=== PATIENT | female | born 1955 ===

== ENCOUNTER 2018-11-20 12:11 | Inpatient (IN) | payer MEDICARE ==
[~2018-11-20] VITALS: Ht 170.2 cm; Wt 71.7 kg
--- NOTE | 2018-11-20 13:23 | Emergency Room Report ---
History of Present Illness General Chief Complaint: Chest Pain Source: Patient Present Illness HPI Patient resents with recent surgery to the right shoulder reports that she was at [facility] for several days Was recently transferred to nursing facility while they're patient was having increased pain and now developed right upper chest pain and presents to the ER denies any vomiting Patient reports that she had been constipated for 5 days however upon arrival to the ER did have a large bowel movement and feels improved with that denies any short of breath denies any pleurisy Allergies: Coded Allergies: LOSARTAN (Verified Allergy, Severe, chest pain, 11/20/18) HYDROCODONE (Verified Allergy, Intermediate, rash, 11/20/18) ATORVASTATIN (Verified Allergy, Unknown, 11/20/18) LISINOPRIL (Verified Allergy, Unknown, 11/20/18) PROCHLORPERAZINE (Verified Allergy, Unknown, 11/20/18) SIMVASTATIN (Verified Allergy, Unknown, 11/20/18) Patient History Past Medical History: see triage record Pertinent Family History: none Last Menstrual Period: n/a Reviewed Nursing Documentation: PMH: Agreed; PSxH: Agreed Nursing Documentation-PMH Hx Hypertension: Yes Hx Diabetes: Yes - type 2 Review of Systems All Other Systems: negative except mentioned in HPI Physical Exam Vital Signs Date Time Temp Pulse Resp B/P (MAP) Pulse Ox O2 Delivery O2 Flow Rate FiO2 11/20/18 12:04 98.6 95 18 135/81 92 Room Air Sp02 EP Interpretation: reviewed, normal General Appearance: no apparent distress Head: normocephalic, atraumatic Eyes: bilateral eye PERRL, bilateral eye EOMI ENT: normal pharynx, no angioedema Neck: supple Respiratory: lungs clear, no retraction, no accessory muscle use Cardiovascular #1: regular rate, rhythm Gastrointestinal: non tender, soft Musculoskeletal: other - Surgical dressing over the right shoulder, limited range of motion Neurologic: alert, oriented x3 Skin: no rash Lymphatic: no adenopathy Medical Decision Making Diagnostic Impression: Primary Impression: ACS (acute coronary syndrome) Additional Impression: Elevated transaminase level ER Course Patient is a fairly complex patient with multiple differential to consideration including but not limited to cardiac cardiopulmonary and vascular emergencies There appears to be some significant component of discomfort related to the patient's right shoulder as well EKG does not show any acute pathology Patient complains of diffuse pain involving the lower back intermittently as well patient is complex and will require further inpatient care and evaluation Labs Test 11/20/18 13:10 White Blood Count 11.4 K/UL (4.8-10.8) Red Blood Count 4.30 M/UL (4.20-5.40) Hemoglobin 12.9 G/DL (12.0-16.0) Hematocrit 39.6 % (37.0-47.0) Mean Corpuscular Volume 92 FL (80-99) Mean Corpuscular Hemoglobin 29.9 PG (27.0-31.0) Mean Corpuscular Hemoglobin Concent 32.5 G/DL (32.0-36.0) Red Cell Distribution Width 13.1 % (11.6-14.8) Platelet Count 354 K/UL (150-450) Mean Platelet Volume 5.5 FL (6.5-10.1) Neutrophils (%) (Auto) 80.0 % (45.0-75.0) Lymphocytes (%) (Auto) 13.9 % (20.0-45.0) Monocytes (%) (Auto) 4.1 % (1.0-10.0) Eosinophils (%) (Auto) 1.4 % (0.0-3.0) Basophils (%) (Auto) 0.5 % (0.0-2.0) Sodium Level 139 MMOL/L (136-145) Potassium Level 4.4 MMOL/L (3.5-5.1) Chloride Level 100 MMOL/L (98-107) Carbon Dioxide Level 30 MMOL/L (21-32) Anion Gap 9 mmol/L (5-15) Blood Urea Nitrogen 22 mg/dL (7-18) Creatinine 1.2 MG/DL (0.55-1.30) Estimat Glomerular Filtration Rate 45.5 mL/min (>60) Glucose Level 201 MG/DL (74-106) Calcium Level 10.1 MG/DL (8.5-10.1) Total Bilirubin 0.5 MG/DL (0.2-1.0) Aspartate Amino Transf (AST/SGOT) 396 U/L (15-37) Alanine Aminotransferase (ALT/SGPT) 316 U/L (12-78) Alkaline Phosphatase 237 U/L (46-116) Total Creatine Kinase 171 U/L (26-308) Creatine Kinase MB 1.8 NG/ML (0.0-3.6) Creatine Kinase MB Relative Index 1.0 Troponin I 0.000 ng/mL (0.000-0.056) Pro-B-Type Natriuretic Peptide 308 pg/mL (0-125) Total Protein 8.3 G/DL (6.4-8.2) Albumin 3.3 G/DL (3.4-5.0) Globulin 5.0 g/dL Albumin/Globulin Ratio 0.7 (1.0-2.7) Rhythm Strip Diag. Results EP Interpretation: yes Rate: 77 Rhythm: NSR, no PVC's, no ectopy Chest X-Ray Diagnostic Results Chest X-Ray Diagnostic Results : Chest X-Ray Ordered: Yes # of Views/Limited/Complete: 1 View Indication: Chest Pain EP Interpretation: Yes Interpretation: no consolidation, no effusion, no pneumothorax, other - Atelectasis right lobe Impression: Other - Atelectasis right lobe Electronically Signed by: Bridget Jaquez DO Last Vital Signs Date Time Temp Pulse Resp B/P (MAP) Pulse Ox O2 Delivery O2 Flow Rate FiO2 11/20/18 12:04 98.6 95 18 135/81 92 Room Air Status: improved Disposition: ADMITTED INPATIENT Condition: Serious Bridget Jaquez DO Nov 20, 2018 13:23
[2018-11-20 13:27] LABS: BASOPHILS % (AUTO) 0.5 % (0.0-2.0); EOSINOPHILS % (AUTO) 1.4 % (0.0-3.0); HEMATOCRIT 39.6 % (37.0-47.0); HEMOGLOBIN 12.9 G/DL (12.0-16.0); LYMPHOCYTES % (AUTO) 13.9 % (20.0-45.0); MEAN CORPUSCULAR VOLUME 92 FL (80-99); MONOCYTES % (AUTO) 4.1 % (1.0-10.0); PLATELET COUNT 354 K/UL (150-450); RED CELL DISTRIBUTION WIDTH 13.1 % (11.6-14.8); WHITE BLOOD COUNT 11.4 K/UL (4.8-10.8)
[2018-11-20] MEDS ORDERED: Morphine Sulfate 4mg/ml Inj (IV USE ONLY) IVP ONE ×2 (13:30→16:30)
[2018-11-20 13:40] LABS: ANION GAP 9 mmol/L (5-15); BLOOD UREA NITROGEN 22 mg/dL (7-18); CALCIUM 10.1 MG/DL (8.5-10.1); CARBON DIOXIDE 30 MMOL/L (21-32); CHLORIDE 100 MMOL/L (98-107); CREATININE 1.2 MG/DL (0.55-1.30); POTASSIUM 4.4 MMOL/L (3.5-5.1); SODIUM 139 MMOL/L (136-145)
[2018-11-20 13:55] LABS: ALANINE AMINOTRANSFERASE 316 U/L (12-78); ALBUMIN 3.3 G/DL (3.4-5.0); ALBUMIN/GLOBULIN RATIO 0.7 (1.0-2.7); ALKALINE PHOSPHATASE 237 U/L (46-116); ASPARTATE AMINO TRANSFERASE 396 U/L (15-37); BILIRUBIN,TOTAL 0.5 MG/DL (0.2-1.0); CKMB 1.8 NG/ML (0.0-3.6); CREATINE KINASE 171 U/L (26-308)
[2018-11-20 13:58] VITALS: BP 135/81
--- NOTE | 2018-11-20 14:29 | Diagnostic Imaging Report ---
EXAM: XR Chest, 1 View CLINICAL HISTORY: Chest pain TECHNIQUE: Frontal view of the chest. COMPARISON: No relevant prior studies available. FINDINGS: Lungs: Linear band in the right lung base, likely representing discoid atelectasis. The lungs otherwise appear clear. Pleural space: Unremarkable. The costophrenic angles are sharp. No visible pneumothorax. Heart: Unremarkable. No cardiomegaly. Mediastinum: Unremarkable. Bones/joints: Unremarkable. IMPRESSION: Linear band in the right lung base, likely representing discoid atelectasis.
[2018-11-20] MEDS ORDERED: TUBERSOL (PPD)0.1 ML IDERMAL (14:56)
[2018-11-20] MEDS ORDERED: METFORMIN HCL1000 M1 ORAL (14:56)
[2018-11-20] MEDS ORDERED: PANTOPRAZOLE SO40 MG ORAL (14:56)
[2018-11-20] MEDS ORDERED: LOSARTAN POTASS25 MG ORAL (14:56)
[2018-11-20] MEDS ORDERED: ROPINIROLE HCL2 MG PO ×2 (14:56→21:09)
[2018-11-20] MEDS ORDERED: PERCOCET 10-321 EACH ORAL (14:56)
[2018-11-20] MEDS ORDERED: VENLAFAXINE HCL75 MG ORAL ×2 (14:56→21:09)
[2018-11-20] MEDS ORDERED: OXYCODONE-ACET1 EAC3 ORAL (14:56)
[2018-11-20] MEDS ORDERED: Albuterol/Ipratropium 3ml neb HHN PRN (15:00)
[2018-11-20] MEDS ORDERED: Ketorolac 30mg Inj IV PRN (15:00)
[2018-11-20] MEDS ORDERED: dilTIAZem HCl 25mg/5ml Inj IV PRN (15:00)
[2018-11-20] MEDS ORDERED: Miralax 17gm pkt ORAL PRN (15:00)
[2018-11-20] MEDS ORDERED: Nitroglycerin Subl 0.4mg tab SL PRN (15:15)
[2018-11-20 15:25] VITALS: BP 131/93
[2018-11-20] MEDS ORDERED: ARTIFICIAL TEA1 EAC3 OP (17:47)
[2018-11-20] MEDS ORDERED: ASPIRIN81 MG ORAL (17:47)
[2018-11-20] MEDS ORDERED: LEVOTHYROXINE75 MCG ORAL (17:47)
[2018-11-20 20:00] VITALS: BP 124/72
[2018-11-20] MEDS: oxyCODONE HCL/Acetaminophen 5/325mg ORAL PRN (20:27)
[2018-11-20] MEDS: Heparin 5000 units/ml inj SUBQ SCH (21:00)
[2018-11-20] MEDS ORDERED: DIOVAN HCT 1601 EACH ORAL (21:09)
[2018-11-20] MEDS ORDERED: OMEPRAZOLE20 M2 ORAL (21:09)
[2018-11-20] MEDS ORDERED: ADVAIR 500-501 EACH INH (21:09)
[2018-11-20] MEDS ORDERED: TRULICITY1.5 MG/0.5 SQ (21:09)
[2018-11-20] MEDS ORDERED: ATENOLOL100 MG ORAL (21:09)
[2018-11-20] MEDS ORDERED: ACTOS15 MG ORAL (21:09)
[2018-11-20] MEDS ORDERED: PRAVASTATIN SOD20 M1 ORAL (21:09)
[2018-11-21] VITALS: BP 132/49
[2018-11-21] MEDS: Morphine Sulfate 2mg/ml Inj(IV/IM USE ONLY) IVP PRN ×4 (00:06→16:45)
[2018-11-21] MEDS: oxyCODONE HCL/Acetaminophen 5/325mg ORAL PRN ×2 (00:56→06:26)
[2018-11-21 04:00] VITALS: BP 145/76
[2018-11-21 07:19] LABS: BASOPHILS % (AUTO) 0.6 % (0.0-2.0); HEMATOCRIT 34.5 % (37.0-47.0); HEMOGLOBIN 11.3 G/DL (12.0-16.0); LYMPHOCYTES % (AUTO) 30.3 % (20.0-45.0); MEAN CORPUSCULAR VOLUME 92 FL (80-99); NEUTROPHILS % (AUTO) 60.1 % (45.0-75.0); PLATELET COUNT 330 K/UL (150-450); RED BLOOD COUNT 3.74 M/UL (4.20-5.40); RED CELL DISTRIBUTION WIDTH 13.2 % (11.6-14.8); WHITE BLOOD COUNT 5.9 K/UL (4.8-10.8)
[2018-11-21 07:41] LABS: CHOLESTEROL 188 MG/DL (< 200); HDL CHOLESTEROL 58 MG/DL (40-60); TRIGLYCERIDES 68 MG/DL (30-150)
[2018-11-21 08:00] VITALS: BP 147/70
[2018-11-21] MEDS ORDERED: Losartan 25mg tab ORAL SCH (09:00)
[2018-11-21] MEDS: Aspirin Baby 81mg ORAL SCH (09:45)
[2018-11-21] MEDS: Venlafaxine XR 75mg cap ORAL SCH (09:45)
[2018-11-21] MEDS: Heparin 5000 units/ml inj SUBQ SCH ×2 (09:46→21:00)
--- NOTE | 2018-11-21 11:19 | Cardiology Progress Note ---
Assessment/Plan Assessment/Plan 2 trop neg ekg neg echo prelim neg will need repeat ekg dtr did not answere her phone to see if pt has already had preop stress test or not if nto been prformed may need tohave done venous duplex need s gi evla for lft abn [id number] Objective Last 24 Hour Vital Signs Date Time Temp Pulse Resp B/P (MAP) Pulse Ox O2 Delivery O2 Flow Rate FiO2 11/21/18 09:00 Room Air 11/21/18 08:00 79 11/21/18 08:00 97.9 72 18 147/70 (95) 95 11/21/18 07:05 99 16 Room Air 21 11/21/18 04:00 80 11/21/18 04:00 98.1 72 18 145/76 (99) 98 11/21/18 00:00 100.2 88 20 132/49 (76) 98 11/21/18 00:00 88 11/20/18 21:00 Room Air 11/20/18 20:10 96 18 Room Air 21 11/20/18 20:00 93 11/20/18 20:00 99.0 89 20 124/72 (89) 100 11/20/18 18:02 Nasal Cannula 2.0 11/20/18 17:09 95 18 Room Air 21 11/20/18 16:53 98.6 11/20/18 16:51 98.6 98 18 131/93 95 Room Air 11/20/18 15:25 98.6 98 18 131/93 95 Room Air 11/20/18 14:01 98.6 11/20/18 13:58 90 18 Room Air 11/20/18 13:58 98.6 90 18 135/81 92 Room Air 11/20/18 12:04 98.6 95 18 135/81 92 Room Air Intake and Output 11/20/18 11/21/18 19:00 07:00 Intake Total 360 ml 360 ml Balance 360 ml 360 ml Intake Oral 360 ml 360 ml # Voids 2 2 # Bowel Movements 2 Laboratory Tests Test 11/20/18 13:10 11/21/18 05:45 White Blood Count 11.4 K/UL (4.8-10.8) H 5.9 K/UL (4.8-10.8) Red Blood Count 4.30 M/UL (4.20-5.40) 3.74 M/UL (4.20-5.40) L Hemoglobin 12.9 G/DL (12.0-16.0) 11.3 G/DL (12.0-16.0) L Hematocrit 39.6 % (37.0-47.0) 34.5 % (37.0-47.0) L Mean Corpuscular Volume 92 FL (80-99) 92 FL (80-99) Mean Corpuscular Hemoglobin 29.9 PG (27.0-31.0) 30.1 PG (27.0-31.0) Mean Corpuscular Hemoglobin Concent 32.5 G/DL (32.0-36.0) 32.6 G/DL (32.0-36.0) Red Cell Distribution Width 13.1 % (11.6-14.8) 13.2 % (11.6-14.8) Platelet Count 354 K/UL (150-450) 330 K/UL (150-450) Mean Platelet Volume 5.5 FL (6.5-10.1) L 5.1 FL (6.5-10.1) L Neutrophils (%) (Auto) 80.0 % (45.0-75.0) H 60.1 % (45.0-75.0) Lymphocytes (%) (Auto) 13.9 % (20.0-45.0) L 30.3 % (20.0-45.0) Monocytes (%) (Auto) 4.1 % (1.0-10.0) 6.0 % (1.0-10.0) Eosinophils (%) (Auto) 1.4 % (0.0-3.0) 3.0 % (0.0-3.0) Basophils (%) (Auto) 0.5 % (0.0-2.0) 0.6 % (0.0-2.0) Sodium Level 139 MMOL/L (136-145) Potassium Level 4.4 MMOL/L (3.5-5.1) Chloride Level 100 MMOL/L (98-107) Carbon Dioxide Level 30 MMOL/L (21-32) Anion Gap 9 mmol/L (5-15) Blood Urea Nitrogen 22 mg/dL (7-18) H Creatinine 1.2 MG/DL (0.55-1.30) Estimat Glomerular Filtration Rate 45.5 mL/min (>60) Glucose Level 201 MG/DL (74-106) H Calcium Level 10.1 MG/DL (8.5-10.1) Total Bilirubin 0.5 MG/DL (0.2-1.0) Aspartate Amino Transf (AST/SGOT) 396 U/L (15-37) H Alanine Aminotransferase (ALT/SGPT) 316 U/L (12-78) H Alkaline Phosphatase 237 U/L (46-116) H Total Creatine Kinase 171 U/L (26-308) Creatine Kinase MB 1.8 NG/ML (0.0-3.6) Creatine Kinase MB Relative Index 1.0 Troponin I 0.000 ng/mL (0.000-0.056) 0.000 ng/mL (0.000-0.056) Pro-B-Type Natriuretic Peptide 308 pg/mL (0-125) H Total Protein 8.3 G/DL (6.4-8.2) H Albumin 3.3 G/DL (3.4-5.0) L Globulin 5.0 g/dL Albumin/Globulin Ratio 0.7 (1.0-2.7) L Prothrombin Time 10.3 SEC (9.30-11.50) Prothromb Time International Ratio 1.0 (0.9-1.1) Activated Partial Thromboplast Time 27 SEC (23-33) C-Reactive Protein, Quantitative 6.8 mg/dL (0.00-0.90) H Triglycerides Level 68 MG/DL (30-150) Cholesterol Level 188 MG/DL (< 200) LDL Cholesterol 98 mg/dL (<100) HDL Cholesterol 58 MG/DL (40-60) Cholesterol/HDL Ratio 3.2 (3.3-4.4) L Thyroid Stimulating Hormone (TSH) 1.063 uiU/mL (0.358-3.740) Brad Canales MD Nov 21, 2018 11:19
[2018-11-21] MEDS ORDERED: Lexiscan 0.4mg/5ml syringe IV PRN (11:30)
[2018-11-21] MEDS ORDERED: DiphenhydrAMINE 25mg/10ml Elixir ORAL PRN (11:45)
[2018-11-21 12:00] VITALS: BP 127/88
--- NOTE | 2018-11-21 14:22 | Consultation ---
History of Present Illness General Date patient seen: Nov 21, 2018 Chief Complaint: Chest Pain Present Illness HPI 63 year old female with hx of HTN, hypothyroid, with recent surgery to the right shoulde brought to ER with CC of right upper chest pain. Patient reports that she had been constipated for 5 days however upon arrival to the ER did have a large bowel movement and feels improved with that denies any short of breath denies any pleurisy. Pt is admitted to telemetry for treatment of her ACS. Allergies: Coded Allergies: LOSARTAN (Verified Allergy, Severe, chest pain, 11/20/18) HYDROCODONE (Verified Allergy, Intermediate, rash, 11/20/18) ATORVASTATIN (Verified Allergy, Unknown, 11/20/18) LISINOPRIL (Verified Allergy, Unknown, 11/20/18) PROCHLORPERAZINE (Verified Allergy, Unknown, 11/20/18) SIMVASTATIN (Verified Allergy, Unknown, 11/20/18) Medication History Scheduled Aspirin* (Aspirin*), 81 MG ORAL DAILY, (Reported) Atenolol* (Tenormin*), 100 MG ORAL DAILY, (Reported) Dextran 70/Hypromellose/Pf (Artificial Tears Drops), 1 EACH OP DAILY, (Reported) Levothyroxine Sodium* (Levothyroxine Sodium*), 50 MCG ORAL DAILY, (Reported) Metformin Hcl* (Metformin Hcl*), 1,000 MG ORAL BID, (Reported) Omeprazole (Omeprazole), 20 MG ORAL DAILY, (Reported) Pioglitazone Hcl* (Actos*), 15 MG ORAL DAILY, (Reported) Pravastatin Sod* (Pravastatin Sod*), 40 MG ORAL BEDTIME, (Reported) Ropinirole Hcl* (Ropinirole Hcl*), 2 MG PO QHS, (Reported) Valsartan/Hydrochlorothiazide 160-12.5MG (Diovan Hct 160-12.5 Mg Tab), 1 TAB ORAL DAILY, (Reported) Venlafaxine Hcl* (Venlafaxine Hcl*), 225 MG ORAL DAILY, (Reported) Scheduled PRN Fluticasone/Salmeterol (Advair 500-50 Diskus), 1 PUFF INH EVERY 12 HOURS PRN for asthma, (Reported) Oxycodone Hcl/Acetaminophen 10-325 Mg Tablet (Percocet 10-325 Mg Tablet*), 1 TAB ORAL Q4H PRN for For Pain, (Reported) Oxycodone Hcl/Acetaminophen 5-325* (Oxycodone-Acetaminophen 5-325*), 2 TAB ORAL Q4H PRN for For Pain, (Reported) Miscellaneous Medications Dulaglutide (Trulicity), 1.5 MG SQ, (Reported) Discontinued Medications Losartan Potassium* (Losartan Potassium*), 12.5 MG ORAL DAILY, (Reported) Discontinued Reason: Pt stopped taking med Pantoprazole* (Pantoprazole*), 40 MG ORAL DAILY, (Reported) Discontinued Reason: Pt stopped taking med Ropinirole Hcl* (Ropinirole Hcl*), 2 MG PO TID, (Reported) Discontinued Reason: Medication dose changed Tuberculin Ppd (Tubersol), 0.1 ML IDERMAL, (Reported) Discontinued Reason: Therapy completed Venlafaxine Hcl* (Venlafaxine Hcl*), 75 MG ORAL DAILY, (Reported) Discontinued Reason: Medication dose changed Patient History Healthcare decision maker Resuscitation status Full Code Advanced Directive on File Past Medical/Surgical History Past Medical/Surgical History: (1) HTN (hypertension) (2) Diabetes mellitus (3) Hypothyroidism Review of Systems All Other Systems: negative except mentioned in HPI Physical Exam General Appearance: WD/WN, no apparent distress Lines, tubes and drains: peripheral HEENT: normocephalic, atraumatic Neck: non-tender, normal alignment Respiratory/Chest: chest wall non-tender, lungs clear Breasts: no masses Cardiovascular/Chest: normal peripheral pulses Abdomen: normal bowel sounds, soft Genitourinary/Rectal: normal genital exam, heme negative stool Extremities: non-tender, non-pitting Last 24 Hour Vital Signs Date Time Temp Pulse Resp B/P (MAP) Pulse Ox O2 Delivery O2 Flow Rate FiO2 11/21/18 12:00 98.5 79 18 127/88 (101) 93 11/21/18 12:00 77 11/21/18 09:00 Room Air 11/21/18 08:00 79 11/21/18 08:00 97.9 72 18 147/70 (95) 95 11/21/18 07:05 99 16 Room Air 21 11/21/18 04:00 80 11/21/18 04:00 98.1 72 18 145/76 (99) 98 11/21/18 00:00 100.2 88 20 132/49 (76) 98 11/21/18 00:00 88 11/20/18 21:00 Room Air 11/20/18 20:10 96 18 Room Air 21 11/20/18 20:00 93 11/20/18 20:00 99.0 89 20 124/72 (89) 100 11/20/18 18:02 Nasal Cannula 2.0 11/20/18 17:09 95 18 Room Air 21 11/20/18 16:53 98.6 11/20/18 16:51 98.6 98 18 131/93 95 Room Air 11/20/18 15:25 98.6 98 18 131/93 95 Room Air Intake and Output 11/20/18 11/21/18 19:00 07:00 Intake Total 360 ml 360 ml Balance 360 ml 360 ml Intake Oral 360 ml 360 ml # Voids 2 2 # Bowel Movements 2 Laboratory Tests Test 11/21/18 05:45 White Blood Count 5.9 K/UL (4.8-10.8) Red Blood Count 3.74 M/UL (4.20-5.40) L Hemoglobin 11.3 G/DL (12.0-16.0) L Hematocrit 34.5 % (37.0-47.0) L Mean Corpuscular Volume 92 FL (80-99) Mean Corpuscular Hemoglobin 30.1 PG (27.0-31.0) Mean Corpuscular Hemoglobin Concent 32.6 G/DL (32.0-36.0) Red Cell Distribution Width 13.2 % (11.6-14.8) Platelet Count 330 K/UL (150-450) Mean Platelet Volume 5.1 FL (6.5-10.1) L Neutrophils (%) (Auto) 60.1 % (45.0-75.0) Lymphocytes (%) (Auto) 30.3 % (20.0-45.0) Monocytes (%) (Auto) 6.0 % (1.0-10.0) Eosinophils (%) (Auto) 3.0 % (0.0-3.0) Basophils (%) (Auto) 0.6 % (0.0-2.0) Prothrombin Time 10.3 SEC (9.30-11.50) Prothromb Time International Ratio 1.0 (0.9-1.1) Activated Partial Thromboplast Time 27 SEC (23-33) Troponin I 0.000 ng/mL (0.000-0.056) C-Reactive Protein, Quantitative 6.8 mg/dL (0.00-0.90) H Triglycerides Level 68 MG/DL (30-150) Cholesterol Level 188 MG/DL (< 200) LDL Cholesterol 98 mg/dL (<100) HDL Cholesterol 58 MG/DL (40-60) Cholesterol/HDL Ratio 3.2 (3.3-4.4) L Thyroid Stimulating Hormone (TSH) 1.063 uiU/mL (0.358-3.740) Height (Feet): 5 Height (Inches): 7.00 Weight (Pounds): 160 Medications Current Medications Medications (Trade) Dose Ordered Sig/Christen Route PRN Reason Start Time Stop Time Status Last Admin Dose Admin Albuterol/ Ipratropium (Albuterol/ Ipratropium) 3 ml Q4H PRN HHN Shortness of Breath 11/20/18 15:00 11/25/18 14:59 Aspirin (ASA) 162 mg DAILY ORAL 11/21/18 09:00 12/21/18 08:59 11/21/18 09:45 Dextrose (Dextrose 50%) 25 ml Q30M PRN IV Hypoglycemia 11/21/18 13:45 12/21/18 13:44 Dextrose (Dextrose 50%) 50 ml Q30M PRN IV Hypoglycemia 11/21/18 13:45 12/21/18 13:44 Diltiazem HCl (Cardizem) 10 mg EVERY HOUR PRN IV heart rate more than 120BPM 11/20/18 15:00 12/20/18 14:59 Diphenhydramine HCl (Benadryl) 50 mg Q6H PRN ORAL Itching 11/21/18 14:00 12/21/18 13:59 Heparin Sodium (Porcine) (Heparin 5000 units/ml) 5,000 units EVERY 12 HOURS SUBQ 11/20/18 21:00 12/20/18 20:59 11/21/18 09:46 Insulin Aspart (NovoLOG) BEFORE MEALS AND HS SUBQ 11/21/18 16:30 12/21/18 16:29 Ketorolac Tromethamine (Toradol 30mg) 30 mg Q6H PRN IV moderate pain ( 4-6) 11/20/18 15:00 11/25/18 14:59 Levothyroxine Sodium (Synthroid) 50 mcg DAILY@0630 ORAL 11/21/18 06:30 12/21/18 06:29 11/21/18 06:26 Lidocaine (Lidoderm 5% PATCH) 1 patch Q24H TDERMAL 11/20/18 22:00 12/20/18 21:59 11/20/18 22:20 Morphine Sulfate (Morphine Sulfate) 2 mg Q4H PRN IVP For Pain 11/20/18 23:00 11/27/18 22:59 11/21/18 11:25 Nitroglycerin (Ntg) 0.4 mg Q5MIN X 3 DOSES PRN SL Prn Chest Pain 11/20/18 15:15 12/20/18 15:14 Ondansetron HCl (Zofran) 4 mg Q6H PRN IVP Nausea & Vomiting 11/20/18 15:00 12/20/18 14:59 Oxycodone/ Acetaminophen (Percocet 5-325) 2 tab Q4H PRN ORAL Severe Pain (Pain Scale 7-10) 11/20/18 19:00 11/27/18 18:59 11/21/18 06:26 Polyethylene Glycol (Miralax) 17 gm DAILYPRN PRN ORAL Constipation 11/20/18 15:00 12/20/18 14:59 Ropinirole HCl (Requip) 2 mg QHS ORAL 11/20/18 23:00 12/20/18 22:59 11/21/18 00:06 Temazepam (Restoril) 15 mg HSPRN PRN ORAL Insomnia 11/20/18 21:00 11/27/18 20:59 Venlafaxine HCl (Effexor-XR) 75 mg DAILY ORAL 11/21/18 09:00 12/21/18 08:59 11/21/18 09:45 Assessment/Plan Problem List: (1) ACS (acute coronary syndrome) ICD Codes: I24.9 - Acute ischemic heart disease, unspecified SNOMED: 133319387, 513221284 (2) Elevated transaminase level ICD Codes: R74.0 - Nonspecific elevation of levels of transaminase and lactic acid dehydrogenase [LDH] SNOMED: 297449247, 376651911 (3) Hypothyroidism ICD Codes: E03.9 - Hypothyroidism, unspecified SNOMED: 02206802 (4) Diabetes mellitus ICD Codes: E11.9 - Type 2 diabetes mellitus without complications SNOMED: 77264188 (5) HTN (hypertension) ICD Codes: I10 - Essential (primary) hypertension SNOMED: 36893347 Assessment/Plan: serial ekg, troponin cardiology evaluation sliding scale diabetic diet dvt prophylaxis. Sona Magallon MD Nov 21, 2018 14:22
--- NOTE | 2018-11-21 15:50 | History & Physical ---
History and Physical History & Physicial Dictated for Int Med-DR Spence no. [id number] Mike Walker MD Nov 21, 2018 15:50
[2018-11-21 16:00] VITALS: BP 129/81
[2018-11-21] MEDS: NovoLOG Insulin Flexpen SUBQ SCH ×2 (16:39→21:16)
[2018-11-21] MEDS: Docusate 100mg cap ORAL SCH (17:53)
--- NOTE | 2018-11-21 19:00 | Consultation ---
DATE OF CONSULTATION: 11/21/2018 CARDIOLOGY CONSULTATION: CONSULTING PHYSICIAN: Brad Canales M.D. REFERRING PHYSICIAN: Gt Spence M.D. REASON FOR REFERRAL: Chest pain. HISTORY OF PRESENT ILLNESS: This is a middle-aged female, who apparently has a history of shoulder issues both on the right and left. On the right, she had surgery at [facility] on last Thursday, afterwards had some coughing issues and some shortness of breath, was given some breathing treatments, pain subsided, after three days was transferred to convalescent facility where she was not getting any adequate level of care she says. Has problems with having a bowel movement. They would not give her pain medication. They would give her medications to have a bowel movement and she was not able to defecate effectively even despite pushing and one of these episodes was associated with increasing shortness of breath and pain in the chest initially on the right side then in the center and pain was severe. She was short of breath and nauseated, but did not vomit. Roommate called 911, brought to the emergency room here at [facility], and has been admitted. At the present time, the pain is insignificant better, but has not completely resolved. She may have had a stress test. Not clear. I have tried to contact her daughter. I have not been successful as of yet to get that information. She uses one pillow at night. She has palpitations. She has dizziness. She has shortness of breath all the time. PAST MEDICAL HISTORY: Positive diabetes, high blood pressure, high cholesterol. No heart attack. No cancer. No stroke. No hepatitis. No tuberculosis. Does have history of asthma. She does have chronic renal insufficiency apparently was told stage 3 by her doctor. No liver problems. She is hypothyroid. No anemia. No HIV/AIDS. No blood clots. Her chart does indicate that she has history of restless leg syndrome, gastroesophageal reflux disease as well as depression and systemic hypertension. SOCIAL HISTORY: Never smoked or drank. Lives at home. Does not really have anybody else to take care of her. One daughter is in [place]. One daughter is at the [facility] [employer] studying premed, but lives with a roommate. So, she was not able to care for herself and asked that she be transferred to convalescent facility after her surgery. MEDICATIONS: Her medications at home include Advair, aspirin, Synthroid, metformin, Percocet, pioglitazone, pravastatin, ropinirole, Trulicity, valsartan, and venlafaxine. REVIEW OF SYSTEMS: GASTROINTESTINAL: As mentioned, constipation. She has had a bowel movement since she has been here. No bloody or black stools. GENITOURINARY: Negative. PULMONARY: Occasional coughing. CONSTITUTIONAL: Negative. NEUROLOGIC: She has problems with her legs. PHYSICAL EXAMINATION: GENERAL: Shows to be obese middle-aged female, in no respiratory distress. NECK: Supple. No jugular venous distention. LUNGS: Appeared to be clear to auscultation on the left side where she was able to lift the left shoulder off the pillow, so I can examine her lungs. CARDIAC: Regular rate and rhythm. No heaves or thrills noted. ABDOMEN: Soft, obese. Positive bowel sounds. Nontender. EXTREMITIES: There is no edema. She has a cold pack that is applied to her right shoulder and right chest wall area. NEUROLOGIC: She is awake, alert, responsive. LABORATORY VALUES: Two sets of cardiac enzymes negative. Sodium 139, potassium 4.4, chloride 100, bicarbonate 30, BUN 22, creatinine 1.2, and glucose of 202. AST and ALT elevated at 396 and 360, alkaline phosphatase of 237. CK of 171, proBNP is only 300. Total protein of 8.3 with a gamma globulin of 4. LDL of 98, HDL 58. TSH of 1.06. INR is 1, PTT of 27. IMAGING: Including a chest x-ray the right lung base likely represent discoid atelectasis. Telemetry shows sinus. EKG shows normal sinus rhythm, no significant ST-T abnormalities. Only significant degree on 1 EKG. Echocardiogram has been performed shows ejection fraction of 70%, PA pressure of 50, mild diastolic relaxation abnormalities at least on the preliminary report. ASSESSMENT AND PLAN: 1. Chest pain. 2. Diabetes. 3. Hypertension. 4. Hyperlipidemia. 5. Obesity. 6. Recent shoulder surgery. 7. Restless leg syndrome. 8. Gastroesophageal reflux disease. 9. Hypothyroidism. 10. Abnormal liver function tests. This patient was seen in cardiac consultation. Electrocardiogram from last night is negative. EKG at least the first time present was negative. Two sets of cardiac enzymes are negative despite severe pain. Her EKG does not show any significant abnormalities. However, she does have multiple risk factors for coronary artery disease. Not clear to me she ever had a stress test. I will try to contact the daughter again to identify if any stress test had been performed. Nevertheless, EKG will be repeated. Venous duplex of the lower extremity will be performed to rule out deep venous thromboses and further recommendations depending on the results of the above. She should undergo abdominal ultrasound to evaluate for possibility of cholecystitis. If stress test has not been performed, she may require having one performed during this hospitalization. Brad Canales M.D. DR: ROCKY JOB#: [id number] CC:
[2018-11-21 20:00] VITALS: BP 128/76
[2018-11-21] MEDS: Morphine Sulfate 4mg/ml Inj (IV USE ONLY) IVP PRN (21:13)
--- NOTE | 2018-11-21 23:30 | History and Physical Report ---
DATE OF ADMISSION: 11/20/2018 CHIEF COMPLAINT: The patient is a 63-year-old [place] female who presents with chief complaint of rectal bleeding. HISTORY OF PRESENT ILLNESS: The patient was admitted to [facility] from 11/16/2018 to 11/19/2018. The patient is status post arthroscopic right shoulder rotator cuff repair on 11/16/2018 at [facility]. The patient was discharged on 11/19/2018 to [facility]. The patient states she has been constipated since admission to [facility]. The patient asked for an enema on 11/19/2018 due to impaction of stool. The patient became extremely warm to the touch. The patient had a near syncopal episode. The patient herself dialed 911. The patient was transferred to [facility] Emergency Room for evaluation. The patient was admitted for near syncope and rectal bleeding. REVIEW OF SYSTEMS: CONSTITUTIONAL: The patient denies weight loss or weight gain. The patient denies fevers or chills. HEENT: The patient denies ear or throat pain. The patient denies headache. CARDIOVASCULAR: The patient denies palpitations or chest pain. CHEST: The patient denies wheeze or shortness of breath. ABDOMEN: The patient complains of constipation as above. The patient denies nausea, vomiting, or diarrhea. GENITOURINARY: The patient denies dysuria or increased frequency of urination. NEUROMUSCULAR: The patient denies seizures. The patient with near syncopal episode as above. PAST MEDICAL HISTORY: Significant for: 1. Type 2 diabetes. 2. Hypertension. 3. Hypothyroidism. 4. Hypercholesterolemia. 5. Asthma. PAST SURGICAL HISTORY: Significant for: 1. Arthroscopic right shoulder rotator cuff repair on 11/16/2018 at [facility] as above. 2. Cholecystectomy. CURRENT MEDICATIONS: 1. Albuterol metered-dose inhaler two puffs p.o. q.i.d. p.r.n. 2. Aspirin 325 mg p.o. twice daily. 3. Levoxyl 0.05 mg p.o. daily. 4. Losartan 12.5 mg p.o. daily. 5. Metformin 1000 mg p.o. twice daily. 6. Okreek 5/325 mg one tablet p.o. q.4 h. p.r.n. 7. Okreek 10/325 mg one tablet p.o. q.4 h. p.r.n. 8. Protonix 40 mg p.o. daily. 9. Ropinirole 2 mg p.o. nightly for restless legs. 10. Venlafaxine 75 mg three tablets p.o. daily. ALLERGIES: 1. Compazine. 2. Vicodin. 3. Losartan. 4. Zocor. 5. Lipitor. SOCIAL HISTORY: The patient is . The patient is currently at [facility]. The patient denies tobacco or alcohol use. PHYSICAL EXAMINATION: VITAL SIGNS: Temperature 100.2, respirations 20, pulse 88, and blood pressure 132/49. GENERAL: The patient is a well-developed and well-nourished [place] female, in no apparent distress. HEENT: Eyes, pupils are equal and responsive to light and accommodation. Extraocular movements are intact. NECK: Supple without lymphadenopathy. CHEST: Lungs are clear to auscultation bilaterally without wheezes or rales. CARDIOVASCULAR: Regular rhythm and rate. S1-S2 are normal without murmurs, rubs, or gallops. ABDOMEN: Soft, nontender, and nondistended. Positive bowel sounds. No evidence of hepatosplenomegaly. Currently, no rebound or guarding noted. EXTREMITIES: Right shoulder has an ice pack. Otherwise, extremities without clubbing, cyanosis, or edema. RECTAL/GENITAL: Refused. NEUROLOGIC: Cranial nerves II through XII are grossly intact without focal deficits. Motor strength is 5/5 bilaterally. Deep tendon reflexes are 2+ plantar. LABORATORY STUDIES: WBC 11.4, hemoglobin 12.9, hematocrit 39.6, and platelets 354,000. Sodium 139, potassium 4.4, chloride 100, CO2 30, BUN 22, and creatinine 1.2. Glucose 201. AST elevated at 396, ALT elevated at 360, and alkaline phosphatase elevated at 237. Troponin 0.0. ASSESSMENT: This is a 63-year-old [place] female with: 1. Rectal bleeding. 2. Constipation. 3. Postop fever. 4. Elevated liver function tests. 5. Diabetes type 2. 6. Hypertension. 7. Gastroesophageal reflux disease. 8. Hypothyroidism. 9. Asthma. 10. Hypercholesterolemia. TREATMENT: 1. Rectale bleeding/constipation/elevated liver function tests. A Gastroenterology consultation has been obtained with Dr. Abimael Rick. The patient may require colonoscopy during this hospitalization for chronic constipation. We will follow recommendations of Gastroenterology. 2. Postop fever. 3. Right rotator cuff tear. The patient is status post arthroscopic right rotator cuff tear repair at [facility] on 11/16/2018. 4. Diabetes type 2. A NovoLog sliding scale has been instituted. Continue metformin as above. 5. Hypertension. Continue diltiazem intravenously p.r.n. 6. Hypothyroidism. Continue Synthroid as above. 7. Gastroesophageal reflux disease. Continue Protonix as above. 8. Asthma. Continue albuterol metered-dose inhaler as above. 9. Hypercholesterolemia. Continue off statins as the patient is allergic to Zocor and Lipitor. Mike Walker M.D. DR: JEEVAN JOB#: [id number] CC:
[2018-11-22] VITALS: BP 144/73
--- NOTE | 2018-11-22 | Consultation ---
DATE OF CONSULTATION: 11/21/2018 CHIEF COMPLAINT: Anemia, constipation, abnormal liver function tests. HISTORY OF PRESENT ILLNESS: This is a very pleasant 63-year-old female with numerous medical problems which I will dictate recent shoulder surgery on the right side but in the ER with severe constipation and abdominal pain. According to her, she has not had a bowel movement for 5 days. In the ER, she was given enema and large hard stool came out and she felt better. The patient has been admitted to hospital, also complained of chest pain. PAST MEDICAL HISTORY: 1. Diabetes. 2. Hypertension. 3. Hypercholesterolemia. 4. Hypothyroidism. ALLERGIES: Multiple medications including atorvastatin, hydrocodone, lisinopril, losartan, prochlorperazine, simvastatin. MEDICATIONS: Please see medication reconciliation list. SOCIAL HISTORY: The patient denies any tobacco, alcohol, or drug abuse. PAST SURGICAL HISTORY: Bilateral cataract surgery, right shoulder surgery, left foot surgery, cholecystectomy open, four breast biopsies for lump, non malignant. REVIEW OF SYSTEMS: A 10-point review of systems was performed and pertinent positives in HPI. FAMILY HISTORY: Noncontributory. PHYSICAL EXAMINATION: VITAL SIGNS: Temperature is 97.7, pulse 87, respiration 18, blood pressure is 129/81. HEENT: Normocephalic and atraumatic. Sclerae anicteric. NECK: Supple. No evidence of obvious lymphadenopathy. CARDIOVASCULAR: Regular rate and rhythm. Plus S1 and S2. No obvious murmur. LUNGS: Clear to auscultation bilaterally. ABDOMEN: Positive bowel sounds. Soft. There is a scar in the right upper quadrant from prior cholecystectomy. No rebound. No guarding. No peritoneal sign. EXTREMITIES: No cyanosis. No clubbing. No edema. LABORATORY DATA: White count 5.9, hemoglobin 11, hematocrit 34, platelet count 330,000. Chem-7, AST 396, ALT of 316, alkaline phosphatase 237. Total bilirubin is 0.5. ASSESSMENT AND PLAN: This is a 63-year-old female with severe constipation, history of hypothyroidism, anemia normocytic, abnormal liver function tests. According to the patient, she had a colonoscopy about 2 years ago and it was negative. According to her, no obvious GI bleeding. Anemia most probably secondary to chronic disease. PLAN: Follow CBC. Anemia workup including iron, B12, folate, stool for OB. Consider gastrointestinal procedures if needed. Meanwhile we will put the patient on a bowel regimen including Colace and MiraLAX. Consider adding lactulose if needed. In terms of abnormal liver function tests that can be secondary to fatty liver. The patient has total bilirubin normal but at the rest of the laboratories were elevated. We will send a hepatitis panel. We will repeat liver function tests for tomorrow. If the patient has persistent elevated liver function tests, we will consider abdominal ultrasound. I want to thank Dr. Spence, for this kind referral. Abimael Rick M.D. DR: Dora JOB#: [id number] CC: Gt Spence M.D.; Fax#: [phone]
[2018-11-22 04:00] VITALS: BP 150/79
[2018-11-22] MEDS: NovoLOG Insulin Flexpen SUBQ SCH ×4 (06:42→21:15)
[2018-11-22 07:54] LABS: BASOPHILS % (AUTO) 0.5 % (0.0-2.0); EOSINOPHILS % (AUTO) 2.8 % (0.0-3.0); HEMATOCRIT 34.2 % (37.0-47.0); HEMOGLOBIN 11.1 G/DL (12.0-16.0); LYMPHOCYTES % (AUTO) 31.7 % (20.0-45.0); MEAN CORPUSCULAR VOLUME 93 FL (80-99); MONOCYTES % (AUTO) 5.4 % (1.0-10.0); NEUTROPHILS % (AUTO) 59.7 % (45.0-75.0); PLATELET COUNT 348 K/UL (150-450); RED CELL DISTRIBUTION WIDTH 12.8 % (11.6-14.8); WHITE BLOOD COUNT 7.3 K/UL (4.8-10.8)
[2018-11-22 08:00] VITALS: BP 143/92
[2018-11-22 08:32] LABS: ANION GAP 7 mmol/L (5-15); BLOOD UREA NITROGEN 20 mg/dL (7-18); CALCIUM 9.8 MG/DL (8.5-10.1); CARBON DIOXIDE 31 MMOL/L (21-32); CHLORIDE 102 MMOL/L (98-107); CREATININE 1.2 MG/DL (0.55-1.30); SODIUM 140 MMOL/L (136-145)
[2018-11-22] MEDS: Docusate 100mg cap ORAL SCH ×2 (08:54→17:45)
[2018-11-22] MEDS: Venlafaxine XR 75mg cap ORAL SCH (08:54)
[2018-11-22] MEDS: Aspirin Baby 81mg ORAL SCH (08:54)
[2018-11-22] MEDS: Heparin 5000 units/ml inj SUBQ SCH ×2 (08:56→21:07)
[2018-11-22 09:34] LABS: % IRON SATURATION 15 % (15-50); IRON 49 ug/dL (50-175); TOTAL IRON BINDING CAPACITY 328 ug/dL (250-450)
[2018-11-22 09:57] LABS: ALANINE AMINOTRANSFERASE 545 U/L (12-78); ALBUMIN 2.8 G/DL (3.4-5.0); ALKALINE PHOSPHATASE 261 U/L (46-116); ASPARTATE AMINO TRANSFERASE 389 U/L (15-37); BILIRUBIN,DIRECT < 0.1 MG/DL (0.0-0.3); BILIRUBIN,TOTAL 0.3 MG/DL (0.2-1.0)
--- NOTE | 2018-11-22 10:35 | GI Progress Note ---
Assessment/Plan Problems: (1) Elevated transaminase level ICD Codes: R74.0 - Nonspecific elevation of levels of transaminase and lactic acid dehydrogenase [LDH] SNOMED: 393560398, 104351683 (2) Diabetes mellitus ICD Codes: E11.9 - Type 2 diabetes mellitus without complications SNOMED: 73313534 Status: unchanged Status Narrative Discussed the Dr. Rick Assessment/Plan Anemia work-up reviewed Liver function test remain elevated, possibly due to fatty liver Hepatitis panel pending We will obtain abdominal ultrasound Okay to advance diet after imaging study Continue bowel regimen including Colace plus MiraLAX, consider adding lactulose if needed PRN transfusions PPI Zofran as needed Repeat LFTs The patient was seen and examined at bedside and all new and available data was reviewed in the patients chart. I agree with the above findings, impression and plan. (Patient seen earlier today. Signature stamp does not reflect patient encounter time.). - Abimael Rick MD Subjective Gastrointestinal/Abdominal: Reports: no symptoms Objective Last 24 Hour Vital Signs Date Time Temp Pulse Resp B/P (MAP) Pulse Ox O2 Delivery O2 Flow Rate FiO2 11/22/18 08:00 98.5 92 18 143/92 (109) 97 11/22/18 04:00 87 11/22/18 04:00 98.0 84 18 150/79 (102) 100 11/22/18 00:07 83 16 99 Nasal Cannula 2.0 28 11/22/18 00:00 88 11/22/18 00:00 98.4 80 20 144/73 (96) 98 11/21/18 23:57 77 16 98 Nasal Cannula 2.0 28 11/21/18 21:00 Room Air 11/21/18 20:54 84 16 Nasal Cannula 2.0 24 11/21/18 20:54 Nasal Cannula 2.0 28 11/21/18 20:54 96 Nasal Cannula 2.0 28 11/21/18 20:00 98.0 86 18 128/76 (93) 100 11/21/18 20:00 91 11/21/18 16:00 86 11/21/18 16:00 97.5 87 18 129/81 (97) 95 11/21/18 12:00 98.5 79 18 127/88 (101) 93 11/21/18 12:00 77 Intake and Output 11/21/18 11/22/18 19:00 07:00 Intake Total 740 ml Balance 740 ml Intake Oral 740 ml # Voids 1 2 # Bowel Movements 2 Laboratory Tests Test 11/22/18 06:25 White Blood Count 7.3 K/UL (4.8-10.8) Red Blood Count 3.70 M/UL (4.20-5.40) L Hemoglobin 11.1 G/DL (12.0-16.0) L Hematocrit 34.2 % (37.0-47.0) L Mean Corpuscular Volume 93 FL (80-99) Mean Corpuscular Hemoglobin 29.9 PG (27.0-31.0) Mean Corpuscular Hemoglobin Concent 32.3 G/DL (32.0-36.0) Red Cell Distribution Width 12.8 % (11.6-14.8) Platelet Count 348 K/UL (150-450) Mean Platelet Volume 5.2 FL (6.5-10.1) L Neutrophils (%) (Auto) 59.7 % (45.0-75.0) Lymphocytes (%) (Auto) 31.7 % (20.0-45.0) Monocytes (%) (Auto) 5.4 % (1.0-10.0) Eosinophils (%) (Auto) 2.8 % (0.0-3.0) Basophils (%) (Auto) 0.5 % (0.0-2.0) Sodium Level 140 MMOL/L (136-145) Potassium Level 5.0 MMOL/L (3.5-5.1) Chloride Level 102 MMOL/L (98-107) Carbon Dioxide Level 31 MMOL/L (21-32) Anion Gap 7 mmol/L (5-15) Blood Urea Nitrogen 20 mg/dL (7-18) H Creatinine 1.2 MG/DL (0.55-1.30) Estimat Glomerular Filtration Rate 45.5 mL/min (>60) Glucose Level 163 MG/DL (74-106) H Calcium Level 9.8 MG/DL (8.5-10.1) Iron Level 49 ug/dL (50-175) L Total Iron Binding Capacity 328 ug/dL (250-450) Percent Iron Saturation 15 % (15-50) Unsaturated Iron Binding 279 ug/dL (112-346) Total Bilirubin 0.3 MG/DL (0.2-1.0) Direct Bilirubin < 0.1 MG/DL (0.0-0.3) Aspartate Amino Transf (AST/SGOT) 389 U/L (15-37) H Alanine Aminotransferase (ALT/SGPT) 545 U/L (12-78) H Alkaline Phosphatase 261 U/L (46-116) H Troponin I 0.000 ng/mL (0.000-0.056) Total Protein 7.2 G/DL (6.4-8.2) Albumin 2.8 G/DL (3.4-5.0) L Carcinoembryonic Antigen Pending Vitamin B12 Level 1045 PG/ML (193-986) H Folate 23.3 NG/ML (8.6-58.9) Free Thyroxine 1.35 NG/DL (0.76-1.46) Hepatitis A IgM Antibody Pending Hepatitis B Surface Antigen Pending Hepatitis B Core IgM Antibody Pending Hepatitis C Antibody Pending Height (Feet): 5 Height (Inches): 7.00 Weight (Pounds): 160 General Appearance: WD/WN, no apparent distress, alert Cardiovascular: normal rate Respiratory/Chest: normal breath sounds, no respiratory distress Abdominal Exam: normal bowel sounds, non tender, soft Extremities: normal range of motion, non-tender Ana Lopez NP Nov 22, 2018 10:35
--- NOTE | 2018-11-22 11:09 | Pulmonology Progress Note ---
Assessment/Plan Problems: (1) ACS (acute coronary syndrome) (2) Elevated transaminase level (3) Hypothyroidism (4) Diabetes mellitus (5) HTN (hypertension) Assessment/Plan pt refusing stress test bp is controlled troponin has been negative Echo wnl dc planning Subjective ROS Limited/Unobtainable: No Constitutional: Reports: no symptoms HEENT: Repors: no symptoms Allergies: Coded Allergies: LOSARTAN (Verified Allergy, Severe, chest pain, 11/20/18) HYDROCODONE (Verified Allergy, Intermediate, rash, 11/20/18) ATORVASTATIN (Verified Allergy, Unknown, 11/20/18) LISINOPRIL (Verified Allergy, Unknown, 11/20/18) PROCHLORPERAZINE (Verified Allergy, Unknown, 11/20/18) SIMVASTATIN (Verified Allergy, Unknown, 11/20/18) Objective Last 24 Hour Vital Signs Date Time Temp Pulse Resp B/P (MAP) Pulse Ox O2 Delivery O2 Flow Rate FiO2 11/22/18 08:00 98.5 92 18 143/92 (109) 97 11/22/18 04:00 87 11/22/18 04:00 98.0 84 18 150/79 (102) 100 11/22/18 00:07 83 16 99 Nasal Cannula 2.0 28 11/22/18 00:00 88 11/22/18 00:00 98.4 80 20 144/73 (96) 98 11/21/18 23:57 77 16 98 Nasal Cannula 2.0 28 11/21/18 21:00 Room Air 11/21/18 20:54 84 16 Nasal Cannula 2.0 24 11/21/18 20:54 Nasal Cannula 2.0 28 11/21/18 20:54 96 Nasal Cannula 2.0 28 11/21/18 20:00 98.0 86 18 128/76 (93) 100 11/21/18 20:00 91 11/21/18 16:00 86 11/21/18 16:00 97.5 87 18 129/81 (97) 95 11/21/18 12:00 98.5 79 18 127/88 (101) 93 11/21/18 12:00 77 Intake and Output 11/21/18 11/22/18 19:00 07:00 Intake Total 740 ml Balance 740 ml Intake Oral 740 ml # Voids 1 2 # Bowel Movements 2 General Appearance: WD/WN HEENT: normocephalic, atraumatic Respiratory/Chest: chest wall non-tender, normal breath sounds Breasts: no masses Cardiovascular: normal rate, no JVD Abdomen: soft, non tender, no mass Extremities: no cyanosis Microbiology Date/Time Source Procedure Growth Status 11/20/18 17:15 Nasal Nares MRSA Culture - Final NO METHICILLIN RESISTANT STAPH AUREUS... Complete 11/20/18 17:15 Rectum VRE Culture - Final NO VANCOMYCIN RESISTANT ENTEROCOCCUS ... Resulted 11/20/18 17:15 Rectum Pending Resulted Laboratory Tests 11/22/18 06:25: White Blood Count 7.3, Red Blood Count 3.70L, Hemoglobin 11.1L, Hematocrit 34.2L , Mean Corpuscular Volume 93, Mean Corpuscular Hemoglobin 29.9, Mean Corpuscular Hemoglobin Concent 32.3, Red Cell Distribution Width 12.8, Platelet Count 348, Mean Platelet Volume 5.2L, Neutrophils (%) (Auto) 59.7, Lymphocytes ( %) (Auto) 31.7, Monocytes (%) (Auto) 5.4, Eosinophils (%) (Auto) 2.8, Basophils (%) (Auto) 0.5, Sodium Level 140, Potassium Level 5.0, Chloride Level 102, Carbon Dioxide Level 31, Anion Gap 7, Blood Urea Nitrogen 20H, Creatinine 1.2, Estimat Glomerular Filtration Rate 45.5, Glucose Level 163H, Calcium Level 9.8, Iron Level 49L, Total Iron Binding Capacity 328, Percent Iron Saturation 15, Unsaturated Iron Binding 279, Total Bilirubin 0.3, Direct Bilirubin < 0.1, Aspartate Amino Transf (AST/SGOT) 389H, Alanine Aminotransferase (ALT/SGPT) 545H , Alkaline Phosphatase 261H, Troponin I 0.000, Total Protein 7.2, Albumin 2.8L, Carcinoembryonic Antigen [Pending], Vitamin B12 Level 1045H, Folate 23.3, Free Thyroxine 1.35, Hepatitis A IgM Antibody [Pending], Hepatitis B Surface Antigen [Pending], Hepatitis B Core IgM Antibody [Pending], Hepatitis C Antibody [ Pending] Current Medications Medications (Trade) Dose Ordered Sig/Christen Route PRN Reason Start Time Stop Time Status Last Admin Dose Admin Albuterol/ Ipratropium (Albuterol/ Ipratropium) 3 ml Q4H PRN HHN Shortness of Breath 11/20/18 15:00 11/25/18 14:59 11/21/18 23:57 Aspirin (ASA) 162 mg DAILY ORAL 11/21/18 09:00 12/21/18 08:59 11/22/18 08:54 Dextrose (Dextrose 50%) 25 ml Q30M PRN IV Hypoglycemia 11/21/18 13:45 12/21/18 13:44 Dextrose (Dextrose 50%) 50 ml Q30M PRN IV Hypoglycemia 11/21/18 13:45 12/21/18 13:44 Diltiazem HCl (Cardizem) 10 mg EVERY HOUR PRN IV heart rate more than 120BPM 11/20/18 15:00 12/20/18 14:59 Diphenhydramine HCl (Benadryl) 50 mg Q6H PRN ORAL Itching 11/21/18 14:00 12/21/18 13:59 11/22/18 06:42 Docusate Sodium (Colace) 100 mg TWICE A DAY ORAL 11/21/18 18:00 12/21/18 17:59 11/22/18 08:54 Heparin Sodium (Porcine) (Heparin 5000 units/ml) 5,000 units EVERY 12 HOURS SUBQ 11/20/18 21:00 12/20/18 20:59 11/22/18 08:56 Insulin Aspart (NovoLOG) BEFORE MEALS AND HS SUBQ 11/21/18 16:30 12/21/18 16:29 11/22/18 06:42 Ketorolac Tromethamine (Toradol 30mg) 30 mg Q6H PRN IV moderate pain ( 4-6) 11/20/18 15:00 11/25/18 14:59 Levothyroxine Sodium (Synthroid) 50 mcg DAILY@0630 ORAL 11/21/18 06:30 12/21/18 06:29 11/22/18 06:42 Lidocaine (Lidoderm 5% PATCH) 1 patch Q24H TDERMAL 11/20/18 22:00 12/20/18 21:59 11/21/18 21:17 Morphine Sulfate (Morphine Sulfate) 2 mg Q4H PRN IVP For Pain 11/21/18 20:30 11/27/18 22:59 11/21/18 21:13 Nitroglycerin (Ntg) 0.4 mg Q5MIN X 3 DOSES PRN SL Prn Chest Pain 11/20/18 15:15 12/20/18 15:14 Ondansetron HCl (Zofran) 4 mg Q6H PRN IVP Nausea & Vomiting 11/20/18 15:00 12/20/18 14:59 Oxycodone/ Acetaminophen (Percocet 5-325) 2 tab Q4H PRN ORAL Severe Pain (Pain Scale 7-10) 11/20/18 19:00 11/27/18 18:59 11/21/18 06:26 Polyethylene Glycol (Miralax) 17 gm DAILYPRN PRN ORAL Constipation 11/20/18 15:00 12/20/18 14:59 Ropinirole HCl (Requip) 2 mg QHS ORAL 11/20/18 23:00 12/20/18 22:59 11/21/18 21:13 Temazepam (Restoril) 15 mg HSPRN PRN ORAL Insomnia 11/20/18 21:00 11/27/18 20:59 Venlafaxine HCl (Effexor-XR) 75 mg DAILY ORAL 11/21/18 09:00 12/21/18 08:59 11/22/18 08:54 Sona Magallon MD Nov 22, 2018 11:09
[2018-11-22] MEDS ORDERED: KADIAN20 M1 PO (11:11)
--- NOTE | 2018-11-22 11:39 | Physician Query ---
--------- THIS DOCUMENT IS A PERMANENT PART OF THE MEDICAL RECORD --------- PLEASE COMPLETE FORM BEFORE SIGNING Dear Dr. Walker Date: 11/22/18 Residential Nurse/ CDS Name: Sabrina Hylton Exercise your independent professional judgment when responding to query. Questions asked do not imply particular answer is desired or expected. We greatly appreciate your clarification on this issue. Clinical Documentation States: HNP: The patient is a 63-year-old [place] female who presents with chief complaint of rectal bleeding...Rectale bleeding/constipation/elevated liver function tests. A Gastroenterology consultation has been obtained with Dr. Abimael Rick. The patient may require colonoscopy during this hospitalization for chronic constipation. Clinical Findings Show: 11/20 Hb 12.9, Hct 39.6 11/22 Hb 11.1; Hct 34.2 Please clarify the specific type of anemia below: Acuity [X]Acute []Acute on Chronic []Chronic Etiology [X] Blood loss [] ESRD [] Neoplastic disease [] Iron deficiency [] GI Bleed from [] Anemia of chronic disease, [] Unable to determine [] Other: Condition Present on Admission: [X] Yes [] No [ ] Clinically Undeterminable Please also document in your Progress Notes and/or Discharge Summary and indicate if the condition was present on admission. MTDD
[2018-11-22] MEDS: Morphine Sulfate 4mg/ml Inj (IV USE ONLY) IVP PRN ×2 (11:53→21:04)
[2018-11-22 12:00] VITALS: BP 134/91
[2018-11-22 16:00] VITALS: BP 130/82
--- NOTE | 2018-11-22 16:08 | Diagnostic Imaging Report ---
Indication: Abnormal liver function tests. Abnormal renal function tests Technique: Bagley-scale and duplex images of the upper abdomen were obtained. Doppler interrogation of the hepatic and pancreatic vessels Comparison: none Findings: Exam is somewhat limited due to patient body habitus. Gallbladder surgically absent .Sonographic Wilson's sign is negative. Common bile duct measures 5 mm in diameter. No intrahepatic biliary ductal dilatation. Liver demonstrates normal echogenicity, no focal abnormality. Portal vein and hepatic veins are patent. Pancreas is incompletely visualized due to overlying bowel gas, visualized portions are unremarkable. Spleen is unremarkable. Left kidney measures 8.6 cm in length. Right kidney measures 9.9 cm length. Both kidneys demonstrate normal echogenicity. There is no hydronephrosis. There is a 9 mm cyst in the left renal interpolar region . Non-aneurysmal abdominal aorta . Impression: Limited exam due to patient body habitus. Note suboptimal visualization of the pancreas Surgically absent gallbladder. Negative for dilated bile ducts Incidental finding of small left renal cyst
[2018-11-22] MEDS ORDERED: metFORMIN 500mg tab ORAL SCH (18:00)
--- NOTE | 2018-11-22 18:57 | Internal Med Progress Note ---
Subjective Date of Service: Nov 22, 2018 Physician Name Mike Walker Attending Physician Gt Spence MD Current Medications Medications (Trade) Dose Ordered Sig/Christen Route PRN Reason Start Time Stop Time Status Last Admin Dose Admin Albuterol/ Ipratropium (Albuterol/ Ipratropium) 3 ml Q4H PRN HHN Shortness of Breath 11/20/18 15:00 11/25/18 14:59 11/21/18 23:57 Aspirin (ASA) 162 mg DAILY ORAL 11/21/18 09:00 12/21/18 08:59 11/22/18 08:54 Dextrose (Dextrose 50%) 25 ml Q30M PRN IV Hypoglycemia 11/21/18 13:45 12/21/18 13:44 Dextrose (Dextrose 50%) 50 ml Q30M PRN IV Hypoglycemia 11/21/18 13:45 12/21/18 13:44 Diltiazem HCl (Cardizem) 10 mg EVERY HOUR PRN IV heart rate more than 120BPM 11/20/18 15:00 12/20/18 14:59 Diphenhydramine HCl (Benadryl) 50 mg Q6H PRN ORAL Itching 11/21/18 14:00 12/21/18 13:59 11/22/18 13:02 Docusate Sodium (Colace) 100 mg TWICE A DAY ORAL 11/21/18 18:00 12/21/18 17:59 11/22/18 17:45 Heparin Sodium (Porcine) (Heparin 5000 units/ml) 5,000 units EVERY 12 HOURS SUBQ 11/20/18 21:00 12/20/18 20:59 11/22/18 08:56 Insulin Aspart (NovoLOG) BEFORE MEALS AND HS SUBQ 11/21/18 16:30 12/21/18 16:29 11/22/18 16:58 Ketorolac Tromethamine (Toradol 30mg) 30 mg Q6H PRN IV moderate pain ( 4-6) 11/20/18 15:00 11/25/18 14:59 Levothyroxine Sodium (Synthroid) 50 mcg DAILY@0630 ORAL 11/21/18 06:30 12/21/18 06:29 11/22/18 06:42 Lidocaine (Lidoderm 5% PATCH) 1 patch Q24H TDERMAL 11/20/18 22:00 12/20/18 21:59 11/21/18 21:17 Metformin HCl (Glucophage) 1,000 mg BID ORAL 11/22/18 18:00 12/22/18 17:59 11/22/18 17:45 Morphine Sulfate (Morphine Sulfate) 2 mg Q4H PRN IVP For Pain 11/21/18 20:30 11/27/18 22:59 11/22/18 11:53 Nitroglycerin (Ntg) 0.4 mg Q5MIN X 3 DOSES PRN SL Prn Chest Pain 11/20/18 15:15 12/20/18 15:14 Ondansetron HCl (Zofran) 4 mg Q6H PRN IVP Nausea & Vomiting 11/20/18 15:00 12/20/18 14:59 Oxycodone/ Acetaminophen (Percocet 5-325) 2 tab Q4H PRN ORAL Severe Pain (Pain Scale 7-10) 11/20/18 19:00 11/27/18 18:59 11/21/18 06:26 Polyethylene Glycol (Miralax) 17 gm DAILYPRN PRN ORAL Constipation 11/20/18 15:00 12/20/18 14:59 Ropinirole HCl (Requip) 2 mg QHS ORAL 11/20/18 23:00 12/20/18 22:59 11/21/18 21:13 Temazepam (Restoril) 15 mg HSPRN PRN ORAL Insomnia 11/20/18 21:00 11/27/18 20:59 Venlafaxine HCl (Effexor-XR) 75 mg DAILY ORAL 11/21/18 09:00 12/21/18 08:59 11/22/18 08:54 Allergies: Coded Allergies: LOSARTAN (Verified Allergy, Severe, chest pain, 11/20/18) HYDROCODONE (Verified Allergy, Intermediate, rash, 11/20/18) ATORVASTATIN (Verified Allergy, Unknown, 11/20/18) LISINOPRIL (Verified Allergy, Unknown, 11/20/18) PROCHLORPERAZINE (Verified Allergy, Unknown, 11/20/18) SIMVASTATIN (Verified Allergy, Unknown, 11/20/18) ROS Limited/Unobtainable: No Constitutional: Reports: no symptoms HEENT: Reports: no symptoms Cardiovascular: Reports: no symptoms Respiratory: Reports: no symptoms Gastrointestinal/Abdominal: Reports: constipated, rectal bleeding Genitourinary: Reports: no symptoms Neurologic/Psychiatric: Reports: no symptoms Subjective 63 YO F admitted with right shoulder/chest pain and rectal bleeding. Cover for Int Alexus Spence Objective Last Vital Signs Date Time Temp Pulse Resp B/P (MAP) Pulse Ox O2 Delivery O2 Flow Rate FiO2 11/22/18 16:00 102 11/22/18 16:00 97.5 20 130/82 (98) 99 11/22/18 15:45 Nasal Cannula 2.0 28 Laboratory Tests Test 11/22/18 06:25 White Blood Count 7.3 K/UL (4.8-10.8) Red Blood Count 3.70 M/UL (4.20-5.40) L Hemoglobin 11.1 G/DL (12.0-16.0) L Hematocrit 34.2 % (37.0-47.0) L Mean Corpuscular Volume 93 FL (80-99) Mean Corpuscular Hemoglobin 29.9 PG (27.0-31.0) Mean Corpuscular Hemoglobin Concent 32.3 G/DL (32.0-36.0) Red Cell Distribution Width 12.8 % (11.6-14.8) Platelet Count 348 K/UL (150-450) Mean Platelet Volume 5.2 FL (6.5-10.1) L Neutrophils (%) (Auto) 59.7 % (45.0-75.0) Lymphocytes (%) (Auto) 31.7 % (20.0-45.0) Monocytes (%) (Auto) 5.4 % (1.0-10.0) Eosinophils (%) (Auto) 2.8 % (0.0-3.0) Basophils (%) (Auto) 0.5 % (0.0-2.0) Sodium Level 140 MMOL/L (136-145) Potassium Level 5.0 MMOL/L (3.5-5.1) Chloride Level 102 MMOL/L (98-107) Carbon Dioxide Level 31 MMOL/L (21-32) Anion Gap 7 mmol/L (5-15) Blood Urea Nitrogen 20 mg/dL (7-18) H Creatinine 1.2 MG/DL (0.55-1.30) Estimat Glomerular Filtration Rate 45.5 mL/min (>60) Glucose Level 163 MG/DL (74-106) H Calcium Level 9.8 MG/DL (8.5-10.1) Iron Level 49 ug/dL (50-175) L Total Iron Binding Capacity 328 ug/dL (250-450) Percent Iron Saturation 15 % (15-50) Unsaturated Iron Binding 279 ug/dL (112-346) Total Bilirubin 0.3 MG/DL (0.2-1.0) Direct Bilirubin < 0.1 MG/DL (0.0-0.3) Aspartate Amino Transf (AST/SGOT) 389 U/L (15-37) H Alanine Aminotransferase (ALT/SGPT) 545 U/L (12-78) H Alkaline Phosphatase 261 U/L (46-116) H Troponin I 0.000 ng/mL (0.000-0.056) Total Protein 7.2 G/DL (6.4-8.2) Albumin 2.8 G/DL (3.4-5.0) L Carcinoembryonic Antigen Pending Vitamin B12 Level 1045 PG/ML (193-986) H Folate 23.3 NG/ML (8.6-58.9) Free Thyroxine 1.35 NG/DL (0.76-1.46) Hepatitis A IgM Antibody Pending Hepatitis B Surface Antigen Pending Hepatitis B Core IgM Antibody Pending Hepatitis C Antibody Pending Microbiology Date/Time Source Procedure Growth Status 11/20/18 17:15 Nasal Nares MRSA Culture - Final NO METHICILLIN RESISTANT STAPH AUREUS... Complete 11/20/18 17:15 Rectum VRE Culture - Final NO VANCOMYCIN RESISTANT ENTEROCOCCUS ... Resulted 11/20/18 17:15 Rectum Pending Resulted Intake and Output 11/21/18 11/22/18 19:00 07:00 Intake Total 740 ml Balance 740 ml Intake Oral 740 ml # Voids 1 2 # Bowel Movements 2 Objective PHYSICAL EXAMINATION: GENERAL: The patient is a well-developed and well-nourished female, in no apparent distress. HEENT: Eyes, pupils are equal and responsive to light and accommodation. Extraocular movements are intact. NECK: Supple without lymphadenopathy. CHEST: Lungs are clear to auscultation bilaterally without wheezes or rales. CARDIOVASCULAR: Regular rhythm and rate. S1-S2 are normal without murmurs, rubs, or gallops. ABDOMEN: Soft, nontender, and nondistended. Positive bowel sounds. No evidence of hepatosplenomegaly. Currently, no rebound or guarding noted. EXTREMITIES: Right shoulder has an ice pack. Otherwise, extremities without clubbing, cyanosis, or edema. RECTAL/GENITAL: Refused. NEUROLOGIC: Cranial nerves II through XII are grossly intact without focal deficits. Motor strength is 5/5 bilaterally. Deep tendon reflexes are 2+ plantar. Assessment/Plan Assessment/Plan ASSESSMENT: This is a 63-year-old female with: 1. Rectal bleeding. 2. Constipation. 3. Postop fever. 4. Elevated liver function tests. 5. Diabetes type 2. 6. Hypertension. 7. Gastroesophageal reflux disease. 8. Hypothyroidism. 9. Asthma. 10. Hypercholesterolemia. TREATMENT: 1. Rectale bleeding/constipation/elevated liver function tests. A Gastroenterology consultation has been obtained with Dr. Abimael Rick. The patient has been placed on a bowel regimen including miralax and colace. We will follow recommendations of Gastroenterology. 2. Postop fever. 3. Right rotator cuff tear. The patient is status post arthroscopic right rotator cuff tear repair at [facility] on 11/16/2018. 4. Diabetes type 2. A NovoLog sliding scale has been instituted. Continue metformin as above. 5. Hypertension. Continue diltiazem intravenously p.r.n. 6. Hypothyroidism. Continue Synthroid as above. 7. Gastroesophageal reflux disease. Continue Protonix as above. 8. Asthma. Continue albuterol metered-dose inhaler as above. 9. Hypercholesterolemia. Continue off statins as the patient is allergic to Zocor and Lipitor. Mike Walker MD Nov 22, 2018 18:57
--- NOTE | 2018-11-22 19:23 | Cardiology Progress Note ---
Assessment/Plan Assessment/Plan 1. Chest pain. 2. Diabetes. 3. Hypertension. 4. Hyperlipidemia. 5. Obesity. 6. Recent shoulder surgery. 7. Restless leg syndrome. 8. Gastroesophageal reflux disease. 9. Hypothyroidism. 10. Abnormal liver function tests. refused stress test today she recll having had a stress test befoer her shoulder surgery recently she indicate the surgeon would not perform surgery unless her stress test ok adn she say the strss test was ok sin surgeon performed the surgery all trop neg dc tele ok to med surg Subjective Subjective hurts all over , not want codeine Objective Last 24 Hour Vital Signs Date Time Temp Pulse Resp B/P (MAP) Pulse Ox O2 Delivery O2 Flow Rate FiO2 11/22/18 16:00 102 11/22/18 16:00 97.5 87 20 130/82 (98) 99 11/22/18 15:45 97 Nasal Cannula 2.0 28 11/22/18 15:45 87 18 Nasal Cannula 2.0 28 11/22/18 15:45 Nasal Cannula 2.0 28 11/22/18 12:00 98.0 93 20 134/91 (105) 98 11/22/18 12:00 90 11/22/18 09:00 Room Air 11/22/18 08:00 86 11/22/18 08:00 98.5 92 18 143/92 (109) 97 11/22/18 04:00 87 11/22/18 04:00 98.0 84 18 150/79 (102) 100 11/22/18 00:07 83 16 99 Nasal Cannula 2.0 28 11/22/18 00:00 88 11/22/18 00:00 98.4 80 20 144/73 (96) 98 11/21/18 23:57 77 16 98 Nasal Cannula 2.0 28 11/21/18 21:00 Room Air 11/21/18 20:54 84 16 Nasal Cannula 2.0 24 11/21/18 20:54 Nasal Cannula 2.0 28 11/21/18 20:54 96 Nasal Cannula 2.0 28 11/21/18 20:00 98.0 86 18 128/76 (93) 100 11/21/18 20:00 91 General Appearance: no apparent distress, alert, obese Cardiovascular: normal rate, regular rhythm Respiratory/Chest: lungs clear Abdomen: non tender, soft Extremities: no swelling Intake and Output 11/21/18 11/22/18 19:00 07:00 Intake Total 740 ml Balance 740 ml Intake Oral 740 ml # Voids 1 2 # Bowel Movements 2 Laboratory Tests Test 11/22/18 06:25 White Blood Count 7.3 K/UL (4.8-10.8) Red Blood Count 3.70 M/UL (4.20-5.40) L Hemoglobin 11.1 G/DL (12.0-16.0) L Hematocrit 34.2 % (37.0-47.0) L Mean Corpuscular Volume 93 FL (80-99) Mean Corpuscular Hemoglobin 29.9 PG (27.0-31.0) Mean Corpuscular Hemoglobin Concent 32.3 G/DL (32.0-36.0) Red Cell Distribution Width 12.8 % (11.6-14.8) Platelet Count 348 K/UL (150-450) Mean Platelet Volume 5.2 FL (6.5-10.1) L Neutrophils (%) (Auto) 59.7 % (45.0-75.0) Lymphocytes (%) (Auto) 31.7 % (20.0-45.0) Monocytes (%) (Auto) 5.4 % (1.0-10.0) Eosinophils (%) (Auto) 2.8 % (0.0-3.0) Basophils (%) (Auto) 0.5 % (0.0-2.0) Sodium Level 140 MMOL/L (136-145) Potassium Level 5.0 MMOL/L (3.5-5.1) Chloride Level 102 MMOL/L (98-107) Carbon Dioxide Level 31 MMOL/L (21-32) Anion Gap 7 mmol/L (5-15) Blood Urea Nitrogen 20 mg/dL (7-18) H Creatinine 1.2 MG/DL (0.55-1.30) Estimat Glomerular Filtration Rate 45.5 mL/min (>60) Glucose Level 163 MG/DL (74-106) H Calcium Level 9.8 MG/DL (8.5-10.1) Iron Level 49 ug/dL (50-175) L Total Iron Binding Capacity 328 ug/dL (250-450) Percent Iron Saturation 15 % (15-50) Unsaturated Iron Binding 279 ug/dL (112-346) Total Bilirubin 0.3 MG/DL (0.2-1.0) Direct Bilirubin < 0.1 MG/DL (0.0-0.3) Aspartate Amino Transf (AST/SGOT) 389 U/L (15-37) H Alanine Aminotransferase (ALT/SGPT) 545 U/L (12-78) H Alkaline Phosphatase 261 U/L (46-116) H Troponin I 0.000 ng/mL (0.000-0.056) Total Protein 7.2 G/DL (6.4-8.2) Albumin 2.8 G/DL (3.4-5.0) L Carcinoembryonic Antigen Pending Vitamin B12 Level 1045 PG/ML (193-986) H Folate 23.3 NG/ML (8.6-58.9) Free Thyroxine 1.35 NG/DL (0.76-1.46) Hepatitis A IgM Antibody Pending Hepatitis B Surface Antigen Pending Hepatitis B Core IgM Antibody Pending Hepatitis C Antibody Pending Microbiology Date/Time Source Procedure Growth Status 11/20/18 17:15 Nasal Nares MRSA Culture - Final NO METHICILLIN RESISTANT STAPH AUREUS... Complete 11/20/18 17:15 Rectum VRE Culture - Final NO VANCOMYCIN RESISTANT ENTEROCOCCUS ... Resulted 11/20/18 17:15 Rectum Pending Resulted Brad Canales MD Nov 22, 2018 19:23
[2018-11-22 20:00] VITALS: BP 137/89
[2018-11-23] VITALS: BP 145/90
[2018-11-23] MEDS: Morphine Sulfate 4mg/ml Inj (IV USE ONLY) IVP PRN ×4 (03:25→21:23)
[2018-11-23 04:00] VITALS: BP 140/88
[2018-11-23] MEDS: NovoLOG Insulin Flexpen SUBQ SCH ×4 (06:45→21:24)
[2018-11-23 07:19] LABS: BASOPHILS % (AUTO) 0.6 % (0.0-2.0); EOSINOPHILS % (AUTO) 3.1 % (0.0-3.0); HEMOGLOBIN 12.1 G/DL (12.0-16.0); LYMPHOCYTES % (AUTO) 35.7 % (20.0-45.0); MEAN CORPUSCULAR VOLUME 93 FL (80-99); NEUTROPHILS % (AUTO) 54.6 % (45.0-75.0); PLATELET COUNT 353 K/UL (150-450); RED BLOOD COUNT 3.99 M/UL (4.20-5.40); RED CELL DISTRIBUTION WIDTH 13.2 % (11.6-14.8); WHITE BLOOD COUNT 7.6 K/UL (4.8-10.8)
[2018-11-23 07:28] LABS: ALANINE AMINOTRANSFERASE 363 U/L (12-78); ALBUMIN 2.8 G/DL (3.4-5.0); ALBUMIN/GLOBULIN RATIO 0.6 (1.0-2.7); ALKALINE PHOSPHATASE 230 U/L (46-116); ANION GAP 9 mmol/L (5-15); ASPARTATE AMINO TRANSFERASE 141 U/L (15-37); BILIRUBIN,TOTAL 0.3 MG/DL (0.2-1.0); BLOOD UREA NITROGEN 23 mg/dL (7-18); CALCIUM 9.6 MG/DL (8.5-10.1); CARBON DIOXIDE 28 MMOL/L (21-32); CHLORIDE 102 MMOL/L (98-107); CREATININE 1.3 MG/DL (0.55-1.30); POTASSIUM 4.3 MMOL/L (3.5-5.1); SODIUM 139 MMOL/L (136-145)
[2018-11-23] MEDS ORDERED: metFORMIN 500mg tab ORAL SCH (07:45)
[2018-11-23 08:00] VITALS: BP 146/84
[2018-11-23] MEDS: Aspirin Baby 81mg ORAL SCH (08:21)
[2018-11-23] MEDS: Venlafaxine XR 75mg cap ORAL SCH (08:21)
[2018-11-23] MEDS: Docusate 100mg cap ORAL SCH ×2 (08:21→18:15)
[2018-11-23] MEDS: Heparin 5000 units/ml inj SUBQ SCH ×2 (08:22→22:27)
--- NOTE | 2018-11-23 10:27 | GI Progress Note ---
Assessment/Plan Problems: (1) Elevated transaminase level ICD Codes: R74.0 - Nonspecific elevation of levels of transaminase and lactic acid dehydrogenase [LDH] SNOMED: 095401114, 112607299 (2) Diabetes mellitus ICD Codes: E11.9 - Type 2 diabetes mellitus without complications SNOMED: 14460226 Status: stable Status Narrative Discussed with Dr. Rick Assessment/Plan Anemia work-up reviewed Liver function tests, possibly due to fatty liver >> downtrending Hepatitis panel negative Abdominal ultrasound reviewed, negative ADA diet Continue bowel regimen including Colace plus MiraLAX, consider adding lactulose if needed PRN transfusions PPI Zofran as needed Trend LFTs outpatient GI procedures The patient was seen and examined at bedside and all new and available data was reviewed in the patients chart. I agree with the above findings, impression and plan. (Patient seen earlier today. Signature stamp does not reflect patient encounter time.). - Abimael Rick MD Subjective Gastrointestinal/Abdominal: Reports: no symptoms Objective Last 24 Hour Vital Signs Date Time Temp Pulse Resp B/P (MAP) Pulse Ox O2 Delivery O2 Flow Rate FiO2 11/23/18 09:25 99 Nasal Cannula 2.0 28 11/23/18 09:25 Nasal Cannula 2.0 28 11/23/18 09:25 96 18 Nasal Cannula 2.0 28 11/23/18 08:00 97.5 86 18 146/84 (104) 98 11/23/18 04:00 98.1 87 18 140/88 (105) 96 11/23/18 00:01 99 11/23/18 00:00 98.0 85 18 145/90 (108) 95 11/22/18 21:00 Room Air 11/22/18 20:48 98 16 Nasal Cannula 2.0 28 11/22/18 20:48 Nasal Cannula 2.0 28 11/22/18 20:48 99 Nasal Cannula 2.0 28 11/22/18 20:00 99.5 87 18 137/89 (105) 96 11/22/18 19:37 92 11/22/18 16:00 102 11/22/18 16:00 97.5 87 20 130/82 (98) 99 11/22/18 15:45 97 Nasal Cannula 2.0 28 11/22/18 15:45 87 18 Nasal Cannula 2.0 28 11/22/18 15:45 Nasal Cannula 2.0 28 11/22/18 12:00 98.0 93 20 134/91 (105) 98 11/22/18 12:00 90 Intake and Output 11/22/18 11/23/18 18:59 06:59 Intake Total 360 ml Output Total 450 ml Balance -90 ml Intake Oral 360 ml Output Urine Total 450 ml # Voids 3 # Bowel Movements 1 Laboratory Tests Test 11/23/18 01:35 11/23/18 06:00 Stool Occult Blood Pending White Blood Count 7.6 K/UL (4.8-10.8) Red Blood Count 3.99 M/UL (4.20-5.40) L Hemoglobin 12.1 G/DL (12.0-16.0) Hematocrit 37.0 % (37.0-47.0) Mean Corpuscular Volume 93 FL (80-99) Mean Corpuscular Hemoglobin 30.4 PG (27.0-31.0) Mean Corpuscular Hemoglobin Concent 32.9 G/DL (32.0-36.0) Red Cell Distribution Width 13.2 % (11.6-14.8) Platelet Count 353 K/UL (150-450) Mean Platelet Volume 5.2 FL (6.5-10.1) L Neutrophils (%) (Auto) 54.6 % (45.0-75.0) Lymphocytes (%) (Auto) 35.7 % (20.0-45.0) Monocytes (%) (Auto) 6.0 % (1.0-10.0) Eosinophils (%) (Auto) 3.1 % (0.0-3.0) H Basophils (%) (Auto) 0.6 % (0.0-2.0) Sodium Level 139 MMOL/L (136-145) Potassium Level 4.3 MMOL/L (3.5-5.1) Chloride Level 102 MMOL/L (98-107) Carbon Dioxide Level 28 MMOL/L (21-32) Anion Gap 9 mmol/L (5-15) Blood Urea Nitrogen 23 mg/dL (7-18) H Creatinine 1.3 MG/DL (0.55-1.30) Estimat Glomerular Filtration Rate 41.5 mL/min (>60) Glucose Level 153 MG/DL (74-106) H Calcium Level 9.6 MG/DL (8.5-10.1) Total Bilirubin 0.3 MG/DL (0.2-1.0) Aspartate Amino Transf (AST/SGOT) 141 U/L (15-37) H Alanine Aminotransferase (ALT/SGPT) 363 U/L (12-78) H Alkaline Phosphatase 230 U/L (46-116) H Total Protein 7.4 G/DL (6.4-8.2) Albumin 2.8 G/DL (3.4-5.0) L Globulin 4.6 g/dL Albumin/Globulin Ratio 0.6 (1.0-2.7) L Height (Feet): 5 Height (Inches): 7.00 Weight (Pounds): 160 General Appearance: WD/WN, no apparent distress, alert Cardiovascular: normal rate Respiratory/Chest: normal breath sounds, no respiratory distress Abdominal Exam: normal bowel sounds, non tender, soft Extremities: normal range of motion, non-tender Ana Lopez NP Nov 23, 2018 10:27
--- NOTE | 2018-11-23 11:51 | Pulmonology Progress Note ---
Assessment/Plan Problems: (1) ACS (acute coronary syndrome) (2) Elevated transaminase level (3) Hypothyroidism (4) Diabetes mellitus (5) HTN (hypertension) Assessment/Plan no new complains pt cant take take of herself at home bp is controlled troponin has been negative Echo wnl dc planning Subjective ROS Limited/Unobtainable: No Constitutional: Reports: no symptoms HEENT: Repors: no symptoms Allergies: Coded Allergies: LOSARTAN (Verified Allergy, Severe, chest pain, 11/20/18) HYDROCODONE (Verified Allergy, Intermediate, rash, 11/20/18) ATORVASTATIN (Verified Allergy, Unknown, 11/20/18) LISINOPRIL (Verified Allergy, Unknown, 11/20/18) PROCHLORPERAZINE (Verified Allergy, Unknown, 11/20/18) SIMVASTATIN (Verified Allergy, Unknown, 11/20/18) Objective Last 24 Hour Vital Signs Date Time Temp Pulse Resp B/P (MAP) Pulse Ox O2 Delivery O2 Flow Rate FiO2 11/23/18 09:25 99 Nasal Cannula 2.0 28 11/23/18 09:25 Nasal Cannula 2.0 28 11/23/18 09:25 96 18 Nasal Cannula 2.0 28 11/23/18 09:00 Room Air 11/23/18 08:00 97.5 86 18 146/84 (104) 98 11/23/18 04:00 98.1 87 18 140/88 (105) 96 11/23/18 00:01 99 11/23/18 00:00 98.0 85 18 145/90 (108) 95 11/22/18 21:00 Room Air 11/22/18 20:48 98 16 Nasal Cannula 2.0 11/22/18 20:48 Nasal Cannula 2.0 28 11/22/18 20:48 99 Nasal Cannula 2.0 28 11/22/18 20:00 99.5 87 18 137/89 (105) 96 11/22/18 19:37 92 11/22/18 16:00 102 11/22/18 16:00 97.5 87 20 130/82 (98) 99 11/22/18 15:45 97 Nasal Cannula 2.0 28 11/22/18 15:45 87 18 Nasal Cannula 2.0 28 11/22/18 15:45 Nasal Cannula 2.0 28 11/22/18 12:00 98.0 93 20 134/91 (105) 98 11/22/18 12:00 90 Intake and Output 11/22/18 11/23/18 18:59 06:59 Intake Total 360 ml Output Total 450 ml Balance -90 ml Intake Oral 360 ml Output Urine Total 450 ml # Voids 3 # Bowel Movements 1 General Appearance: WD/WN HEENT: normocephalic, atraumatic Respiratory/Chest: chest wall non-tender, lungs clear, normal breath sounds Breasts: no masses Cardiovascular: normal peripheral pulses, normal rate Abdomen: normal bowel sounds, soft, non tender, no organomegaly Genitourinary: normal external genitalia Extremities: no clubbing Skin: no rash Microbiology Date/Time Source Procedure Growth Status 11/20/18 17:15 Nasal Nares MRSA Culture - Final NO METHICILLIN RESISTANT STAPH AUREUS... Complete 11/20/18 17:15 Rectum VRE Culture - Final NO VANCOMYCIN RESISTANT ENTEROCOCCUS ... Complete 11/20/18 17:15 Rectum - Final NO CARBAPENEM-RESISTANT ENTEROBACTERI... Complete Laboratory Tests 11/23/18 01:35: Stool Occult Blood Negative 11/23/18 06:00: White Blood Count 7.6, Red Blood Count 3.99L, Hemoglobin 12.1, Hematocrit 37.0, Mean Corpuscular Volume 93, Mean Corpuscular Hemoglobin 30.4, Mean Corpuscular Hemoglobin Concent 32.9, Red Cell Distribution Width 13.2, Platelet Count 353, Mean Platelet Volume 5.2L, Neutrophils (%) (Auto) 54.6, Lymphocytes (%) (Auto) 35.7, Monocytes (%) (Auto) 6.0, Eosinophils (%) (Auto) 3.1H, Basophils (%) (Auto ) 0.6, Sodium Level 139, Potassium Level 4.3, Chloride Level 102, Carbon Dioxide Level 28, Anion Gap 9, Blood Urea Nitrogen 23H, Creatinine 1.3, Estimat Glomerular Filtration Rate 41.5, Glucose Level 153H, Calcium Level 9.6, Total Bilirubin 0.3, Aspartate Amino Transf (AST/SGOT) 141H, Alanine Aminotransferase (ALT/SGPT) 363H, Alkaline Phosphatase 230H, Total Protein 7.4, Albumin 2.8L, Globulin 4.6, Albumin/Globulin Ratio 0.6L Current Medications Medications (Trade) Dose Ordered Sig/Christen Route PRN Reason Start Time Stop Time Status Last Admin Dose Admin Albuterol/ Ipratropium (Albuterol/ Ipratropium) 3 ml Q4H PRN HHN Shortness of Breath 11/20/18 15:00 11/25/18 14:59 11/21/18 23:57 Aspirin (ASA) 162 mg DAILY ORAL 11/21/18 09:00 12/21/18 08:59 11/23/18 08:21 Dextrose (Dextrose 50%) 25 ml Q30M PRN IV Hypoglycemia 11/21/18 13:45 12/21/18 13:44 Dextrose (Dextrose 50%) 50 ml Q30M PRN IV Hypoglycemia 11/21/18 13:45 12/21/18 13:44 Diltiazem HCl (Cardizem) 10 mg EVERY HOUR PRN IV heart rate more than 120BPM 11/20/18 15:00 12/20/18 14:59 Diphenhydramine HCl (Benadryl) 50 mg Q6H PRN ORAL Itching 11/21/18 14:00 12/21/18 13:59 11/23/18 10:06 Docusate Sodium (Colace) 100 mg TWICE A DAY ORAL 11/21/18 18:00 12/21/18 17:59 11/23/18 08:21 Heparin Sodium (Porcine) (Heparin 5000 units/ml) 5,000 units EVERY 12 HOURS SUBQ 11/20/18 21:00 12/20/18 20:59 11/23/18 08:22 Insulin Aspart (NovoLOG) BEFORE MEALS AND HS SUBQ 11/21/18 16:30 12/21/18 16:29 11/23/18 06:45 Ketorolac Tromethamine (Toradol 30mg) 30 mg Q6H PRN IV moderate pain ( 4-6) 11/20/18 15:00 11/25/18 14:59 Levothyroxine Sodium (Synthroid) 50 mcg DAILY@0630 ORAL 11/21/18 06:30 12/21/18 06:29 11/23/18 06:31 Lidocaine (Lidoderm 5% PATCH) 1 patch Q24H TDERMAL 11/20/18 22:00 12/20/18 21:59 11/22/18 21:08 Metformin HCl (Glucophage) 1,000 mg BIAC ORAL 11/23/18 16:30 12/22/18 16:29 Morphine Sulfate (Morphine Sulfate) 2 mg Q4H PRN IVP For Pain 11/21/18 20:30 11/27/18 22:59 11/23/18 10:07 Nitroglycerin (Ntg) 0.4 mg Q5MIN X 3 DOSES PRN SL Prn Chest Pain 11/20/18 15:15 12/20/18 15:14 Non-Formulary Medication (Non-Formulary Med) 1 ea DAILY ORAL 11/23/18 09:00 12/23/18 08:59 UNV Ondansetron HCl (Zofran) 4 mg Q6H PRN IVP Nausea & Vomiting 11/20/18 15:00 12/20/18 14:59 Oxycodone/ Acetaminophen (Percocet 5-325) 2 tab Q4H PRN ORAL Severe Pain (Pain Scale 7-10) 11/20/18 19:00 11/27/18 18:59 11/21/18 06:26 Pantoprazole (Protonix) 40 mg DAILY ORAL 11/23/18 09:00 12/23/18 08:59 11/23/18 08:21 Polyethylene Glycol (Miralax) 17 gm DAILYPRN PRN ORAL Constipation 11/20/18 15:00 12/20/18 14:59 Ropinirole HCl (Requip) 2 mg QHS ORAL 11/20/18 23:00 12/20/18 22:59 11/22/18 21:03 Temazepam (Restoril) 15 mg HSPRN PRN ORAL Insomnia 11/20/18 21:00 11/27/18 20:59 Venlafaxine HCl (Effexor-XR) 75 mg DAILY ORAL 11/21/18 09:00 12/21/18 08:59 11/23/18 08:21 Sona Magallon MD Nov 23, 2018 11:51
[2018-11-23 12:20] VITALS: BP 136/78
[2018-11-23 16:00] VITALS: BP 139/88
--- NOTE | 2018-11-23 16:27 | Cardiology Progress Note ---
Assessment/Plan Assessment/Plan 1. Chest pain. 2. Diabetes. 3. Hypertension. 4. Hyperlipidemia. 5. Obesity. 6. Recent shoulder surgery. 7. Restless leg syndrome. 8. Gastroesophageal reflux disease. 9. Hypothyroidism. 10. Abnormal liver function tests. refused stress test pt indicated had a stress test befoer her shoulder surgery recently she indicate the surgeon would not perform surgery unless her stress test ok all trop neg dc tele ok to med surg had bm she indicates not able to care for herself and dtr busy at school Subjective Cardiovascular: Denies: chest pain Respiratory: Denies: shortness of breath Gastrointestinal/Abdominal: Reports: constipated - improved 2 bm yest adn today Genitourinary: Denies: burning Objective Last 24 Hour Vital Signs Date Time Temp Pulse Resp B/P (MAP) Pulse Ox O2 Delivery O2 Flow Rate FiO2 11/23/18 12:20 97.7 88 20 136/78 (97) 96 11/23/18 09:25 99 Nasal Cannula 2.0 28 11/23/18 09:25 Nasal Cannula 2.0 28 11/23/18 09:25 96 18 Nasal Cannula 2.0 28 11/23/18 09:00 Room Air 11/23/18 08:00 97.5 86 18 146/84 (104) 98 11/23/18 04:00 98.1 87 18 140/88 (105) 96 11/23/18 00:01 99 11/23/18 00:00 98.0 85 18 145/90 (108) 95 11/22/18 21:00 Room Air 11/22/18 20:48 98 16 Nasal Cannula 2.0 28 11/22/18 20:48 Nasal Cannula 2.0 28 11/22/18 20:48 99 Nasal Cannula 2.0 28 11/22/18 20:00 99.5 87 18 137/89 (105) 96 11/22/18 19:37 92 General Appearance: no apparent distress, alert Neck: supple Cardiovascular: normal rate, regular rhythm Respiratory/Chest: lungs clear Abdomen: normal bowel sounds, non tender, soft Extremities: no swelling Intake and Output 11/22/18 11/23/18 19:00 07:00 Intake Total 360 ml Output Total 450 ml Balance -90 ml Intake Oral 360 ml Output Urine Total 450 ml # Voids 3 # Bowel Movements 1 Laboratory Tests Test 11/23/18 01:35 11/23/18 06:00 Stool Occult Blood Negative (NEGATIVE) White Blood Count 7.6 K/UL (4.8-10.8) Red Blood Count 3.99 M/UL (4.20-5.40) L Hemoglobin 12.1 G/DL (12.0-16.0) Hematocrit 37.0 % (37.0-47.0) Mean Corpuscular Volume 93 FL (80-99) Mean Corpuscular Hemoglobin 30.4 PG (27.0-31.0) Mean Corpuscular Hemoglobin Concent 32.9 G/DL (32.0-36.0) Red Cell Distribution Width 13.2 % (11.6-14.8) Platelet Count 353 K/UL (150-450) Mean Platelet Volume 5.2 FL (6.5-10.1) L Neutrophils (%) (Auto) 54.6 % (45.0-75.0) Lymphocytes (%) (Auto) 35.7 % (20.0-45.0) Monocytes (%) (Auto) 6.0 % (1.0-10.0) Eosinophils (%) (Auto) 3.1 % (0.0-3.0) H Basophils (%) (Auto) 0.6 % (0.0-2.0) Sodium Level 139 MMOL/L (136-145) Potassium Level 4.3 MMOL/L (3.5-5.1) Chloride Level 102 MMOL/L (98-107) Carbon Dioxide Level 28 MMOL/L (21-32) Anion Gap 9 mmol/L (5-15) Blood Urea Nitrogen 23 mg/dL (7-18) H Creatinine 1.3 MG/DL (0.55-1.30) Estimat Glomerular Filtration Rate 41.5 mL/min (>60) Glucose Level 153 MG/DL (74-106) H Calcium Level 9.6 MG/DL (8.5-10.1) Total Bilirubin 0.3 MG/DL (0.2-1.0) Aspartate Amino Transf (AST/SGOT) 141 U/L (15-37) H Alanine Aminotransferase (ALT/SGPT) 363 U/L (12-78) H Alkaline Phosphatase 230 U/L (46-116) H Total Protein 7.4 G/DL (6.4-8.2) Albumin 2.8 G/DL (3.4-5.0) L Globulin 4.6 g/dL Albumin/Globulin Ratio 0.6 (1.0-2.7) L Microbiology Date/Time Source Procedure Growth Status 11/20/18 17:15 Nasal Nares MRSA Culture - Final NO METHICILLIN RESISTANT STAPH AUREUS... Complete 11/20/18 17:15 Rectum VRE Culture - Final NO VANCOMYCIN RESISTANT ENTEROCOCCUS ... Complete 11/20/18 17:15 Rectum - Final NO CARBAPENEM-RESISTANT ENTEROBACTERI... Complete Brad Canales MD Nov 23, 2018 16:27
[2018-11-23] MEDS: metFORMIN 500mg tab ORAL SCH (18:14)
--- NOTE | 2018-11-23 19:13 | Internal Med Progress Note ---
Subjective Date of Service: Nov 23, 2018 Physician Name Mike Walker Attending Physician Gt Spence MD Current Medications Medications (Trade) Dose Ordered Sig/Christen Route PRN Reason Start Time Stop Time Status Last Admin Dose Admin Albuterol/ Ipratropium (Albuterol/ Ipratropium) 3 ml Q4H PRN HHN Shortness of Breath 11/20/18 15:00 11/25/18 14:59 11/21/18 23:57 Aspirin (ASA) 162 mg DAILY ORAL 11/21/18 09:00 12/21/18 08:59 11/23/18 08:21 Dextrose (Dextrose 50%) 25 ml Q30M PRN IV Hypoglycemia 11/21/18 13:45 12/21/18 13:44 Dextrose (Dextrose 50%) 50 ml Q30M PRN IV Hypoglycemia 11/21/18 13:45 12/21/18 13:44 Diltiazem HCl (Cardizem) 10 mg EVERY HOUR PRN IV heart rate more than 120BPM 11/20/18 15:00 12/20/18 14:59 Diphenhydramine HCl (Benadryl) 50 mg Q6H PRN ORAL Itching 11/21/18 14:00 12/21/18 13:59 11/23/18 10:06 Docusate Sodium (Colace) 100 mg TWICE A DAY ORAL 11/21/18 18:00 12/21/18 17:59 11/23/18 18:15 Heparin Sodium (Porcine) (Heparin 5000 units/ml) 5,000 units EVERY 12 HOURS SUBQ 11/20/18 21:00 12/20/18 20:59 11/23/18 08:22 Insulin Aspart (NovoLOG) BEFORE MEALS AND HS SUBQ 11/21/18 16:30 12/21/18 16:29 11/23/18 18:16 Ketorolac Tromethamine (Toradol 30mg) 30 mg Q6H PRN IV moderate pain ( 4-6) 11/20/18 15:00 11/25/18 14:59 Levothyroxine Sodium (Synthroid) 50 mcg DAILY@0630 ORAL 11/21/18 06:30 12/21/18 06:29 11/23/18 06:31 Lidocaine (Lidoderm 5% PATCH) 1 patch Q24H TDERMAL 11/20/18 22:00 12/20/18 21:59 11/22/18 21:08 Metformin HCl (Glucophage) 1,000 mg BIAC ORAL 11/23/18 16:30 12/22/18 16:29 11/23/18 18:14 Morphine Sulfate (Morphine Sulfate) 2 mg Q4H PRN IVP For Pain 11/21/18 20:30 11/27/18 22:59 11/23/18 14:21 Nitroglycerin (Ntg) 0.4 mg Q5MIN X 3 DOSES PRN SL Prn Chest Pain 11/20/18 15:15 12/20/18 15:14 Non-Formulary Medication (Non-Formulary Med) 1 ea DAILY ORAL 11/23/18 09:00 12/23/18 08:59 UNV Ondansetron HCl (Zofran) 4 mg Q6H PRN IVP Nausea & Vomiting 11/20/18 15:00 12/20/18 14:59 Oxycodone/ Acetaminophen (Percocet 5-325) 2 tab Q4H PRN ORAL Severe Pain (Pain Scale 7-10) 11/20/18 19:00 11/27/18 18:59 11/21/18 06:26 Pantoprazole (Protonix) 40 mg DAILY ORAL 11/23/18 09:00 12/23/18 08:59 11/23/18 08:21 Polyethylene Glycol (Miralax) 17 gm DAILYPRN PRN ORAL Constipation 11/20/18 15:00 12/20/18 14:59 Ropinirole HCl (Requip) 2 mg QHS ORAL 11/20/18 23:00 12/20/18 22:59 11/22/18 21:03 Temazepam (Restoril) 15 mg HSPRN PRN ORAL Insomnia 11/20/18 21:00 11/27/18 20:59 Venlafaxine HCl (Effexor-XR) 75 mg DAILY ORAL 11/21/18 09:00 12/21/18 08:59 11/23/18 08:21 Allergies: Coded Allergies: LOSARTAN (Verified Allergy, Severe, chest pain, 11/20/18) HYDROCODONE (Verified Allergy, Intermediate, rash, 11/20/18) ATORVASTATIN (Verified Allergy, Unknown, 11/20/18) LISINOPRIL (Verified Allergy, Unknown, 11/20/18) PROCHLORPERAZINE (Verified Allergy, Unknown, 11/20/18) SIMVASTATIN (Verified Allergy, Unknown, 11/20/18) ROS Limited/Unobtainable: No Constitutional: Reports: no symptoms HEENT: Reports: no symptoms Cardiovascular: Reports: no symptoms Respiratory: Reports: no symptoms Gastrointestinal/Abdominal: Reports: no symptoms Genitourinary: Reports: no symptoms Neurologic/Psychiatric: Reports: no symptoms Subjective 63 YO F admitted with right shoulder/chest pain and rectal bleeding. Cover for Int Med-Dr Spence. Await SNF Objective Last Vital Signs Date Time Temp Pulse Resp B/P (MAP) Pulse Ox O2 Delivery O2 Flow Rate FiO2 11/23/18 16:00 97.7 97 18 139/88 (105) 97 11/23/18 09:25 Nasal Cannula 2.0 28 Laboratory Tests Test 11/23/18 01:35 11/23/18 06:00 Stool Occult Blood Negative (NEGATIVE) White Blood Count 7.6 K/UL (4.8-10.8) Red Blood Count 3.99 M/UL (4.20-5.40) L Hemoglobin 12.1 G/DL (12.0-16.0) Hematocrit 37.0 % (37.0-47.0) Mean Corpuscular Volume 93 FL (80-99) Mean Corpuscular Hemoglobin 30.4 PG (27.0-31.0) Mean Corpuscular Hemoglobin Concent 32.9 G/DL (32.0-36.0) Red Cell Distribution Width 13.2 % (11.6-14.8) Platelet Count 353 K/UL (150-450) Mean Platelet Volume 5.2 FL (6.5-10.1) L Neutrophils (%) (Auto) 54.6 % (45.0-75.0) Lymphocytes (%) (Auto) 35.7 % (20.0-45.0) Monocytes (%) (Auto) 6.0 % (1.0-10.0) Eosinophils (%) (Auto) 3.1 % (0.0-3.0) H Basophils (%) (Auto) 0.6 % (0.0-2.0) Sodium Level 139 MMOL/L (136-145) Potassium Level 4.3 MMOL/L (3.5-5.1) Chloride Level 102 MMOL/L (98-107) Carbon Dioxide Level 28 MMOL/L (21-32) Anion Gap 9 mmol/L (5-15) Blood Urea Nitrogen 23 mg/dL (7-18) H Creatinine 1.3 MG/DL (0.55-1.30) Estimat Glomerular Filtration Rate 41.5 mL/min (>60) Glucose Level 153 MG/DL (74-106) H Calcium Level 9.6 MG/DL (8.5-10.1) Total Bilirubin 0.3 MG/DL (0.2-1.0) Aspartate Amino Transf (AST/SGOT) 141 U/L (15-37) H Alanine Aminotransferase (ALT/SGPT) 363 U/L (12-78) H Alkaline Phosphatase 230 U/L (46-116) H Total Protein 7.4 G/DL (6.4-8.2) Albumin 2.8 G/DL (3.4-5.0) L Globulin 4.6 g/dL Albumin/Globulin Ratio 0.6 (1.0-2.7) L Intake and Output 11/22/18 11/23/18 19:00 07:00 Intake Total 360 ml Output Total 450 ml Balance -90 ml Intake Oral 360 ml Output Urine Total 450 ml # Voids 3 # Bowel Movements 1 Objective PHYSICAL EXAMINATION: GENERAL: The patient is a well-developed and well-nourished [place] female, in no apparent distress. HEENT: Eyes, pupils are equal and responsive to light and accommodation. Extraocular movements are intact. NECK: Supple without lymphadenopathy. CHEST: Lungs are clear to auscultation bilaterally without wheezes or rales. CARDIOVASCULAR: Regular rhythm and rate. S1-S2 are normal without murmurs, rubs, or gallops. ABDOMEN: Soft, nontender, and nondistended. Positive bowel sounds. No evidence of hepatosplenomegaly. Currently, no rebound or guarding noted. EXTREMITIES: Right shoulder has an ice pack. Otherwise, extremities without clubbing, cyanosis, or edema. RECTAL/GENITAL: Refused. NEUROLOGIC: Cranial nerves II through XII are grossly intact without focal deficits. Motor strength is 5/5 bilaterally. Deep tendon reflexes are 2+ plantar. Assessment/Plan Assessment/Plan ASSESSMENT: This is a 63-year-old Italian female with: 1. Rectal bleeding. 2. Constipation. 3. Postop fever. 4. Elevated liver function tests. 5. Diabetes type 2. 6. Hypertension. 7. Gastroesophageal reflux disease. 8. Hypothyroidism. 9. Asthma. 10. Hypercholesterolemia. TREATMENT: 1. Rectale bleeding/constipation/elevated liver function tests. A Gastroenterology consultation has been obtained with Dr. Abimael Rick. The patient has been placed on a bowel regimen including miralax and colace. We will follow recommendations of Gastroenterology. 2. Postop fever. 3. Right rotator cuff tear. The patient is status post arthroscopic right rotator cuff tear repair at [facility] on 11/16/2018. 4. Diabetes type 2. A NovoLog sliding scale has been instituted. Continue metformin as above. 5. Hypertension. Continue diltiazem intravenously p.r.n. 6. Hypothyroidism. Continue Synthroid as above. 7. Gastroesophageal reflux disease. Continue Protonix as above. 8. Asthma. Continue albuterol metered-dose inhaler as above. 9. Hypercholesterolemia. Continue off statins as the patient is allergic to Zocor and Lipitor. 10. Daughter does not want patient to return to [facility]; await bed at [facility] Mike Walker MD Nov 23, 2018 19:13
[2018-11-23 20:00] VITALS: BP 149/105
[2018-11-24] VITALS: BP 143/106
[2018-11-24] MEDS: Morphine Sulfate 4mg/ml Inj (IV USE ONLY) IVP PRN ×2 (01:49→06:06)
[2018-11-24 04:00] VITALS: BP 136/94
[2018-11-24] MEDS: NovoLOG Insulin Flexpen SUBQ SCH ×2 (06:07→12:55)
[2018-11-24] MEDS: metFORMIN 500mg tab ORAL SCH (06:08)
[2018-11-24 06:35] LABS: BASOPHILS % (AUTO) 0.8 % (0.0-2.0); EOSINOPHILS % (AUTO) 2.7 % (0.0-3.0); HEMOGLOBIN 12.4 G/DL (12.0-16.0); LYMPHOCYTES % (AUTO) 40.2 % (20.0-45.0); MEAN CORPUSCULAR VOLUME 92 FL (80-99); MONOCYTES % (AUTO) 6.2 % (1.0-10.0); NEUTROPHILS % (AUTO) 50.1 % (45.0-75.0); PLATELET COUNT 399 K/UL (150-450); RED CELL DISTRIBUTION WIDTH 13.3 % (11.6-14.8); WHITE BLOOD COUNT 8.5 K/UL (4.8-10.8)
[2018-11-24 07:16] LABS: ALANINE AMINOTRANSFERASE 278 U/L (12-78); ALBUMIN 3.2 G/DL (3.4-5.0); ALBUMIN/GLOBULIN RATIO 0.6 (1.0-2.7); ALKALINE PHOSPHATASE 225 U/L (46-116); ANION GAP 11 mmol/L (5-15); ASPARTATE AMINO TRANSFERASE 76 U/L (15-37); BILIRUBIN,TOTAL 0.3 MG/DL (0.2-1.0); BLOOD UREA NITROGEN 27 mg/dL (7-18); CARBON DIOXIDE 25 MMOL/L (21-32); CHLORIDE 100 MMOL/L (98-107); CREATININE 1.4 MG/DL (0.55-1.30); POTASSIUM 4.4 MMOL/L (3.5-5.1); SODIUM 136 MMOL/L (136-145)
[2018-11-24 08:00] VITALS: BP 136/94
[2018-11-24] MEDS: Aspirin Baby 81mg ORAL SCH ×2 (09:00→09:55)
[2018-11-24] MEDS: Docusate 100mg cap ORAL SCH ×2 (09:00→09:55)
[2018-11-24] MEDS: Venlafaxine XR 75mg cap ORAL SCH (09:55)
[2018-11-24] MEDS: Heparin 5000 units/ml inj SUBQ SCH (09:56)
--- NOTE | 2018-11-24 10:14 | GI Progress Note ---
Assessment/Plan Problems: (1) Elevated transaminase level ICD Codes: R74.0 - Nonspecific elevation of levels of transaminase and lactic acid dehydrogenase [LDH] SNOMED: 066826157, 053830353 (2) Diabetes mellitus ICD Codes: E11.9 - Type 2 diabetes mellitus without complications SNOMED: 84594287 Status: stable Status Narrative Discussed with Dr. Rick Assessment/Plan Anemia work-up reviewed Liver function tests, possibly due to fatty liver >> downtrending Hepatitis panel negative Abdominal ultrasound reviewed, negative Occult blood stool negative ADA diet Continue bowel regimen including Colace plus MiraLAX, consider adding lactulose if needed PRN transfusions PPI Zofran as needed Trend LFTs outpatient GI procedures dc planning The patient was seen and examined at bedside and all new and available data was reviewed in the patients chart. I agree with the above findings, impression and plan. (Patient seen earlier today. Signature stamp does not reflect patient encounter time.). - Abimael Rick MD Subjective Gastrointestinal/Abdominal: Reports: no symptoms Objective Last 24 Hour Vital Signs Date Time Temp Pulse Resp B/P (MAP) Pulse Ox O2 Delivery O2 Flow Rate FiO2 11/24/18 07:11 Room Air 21 11/24/18 07:11 85 16 Room Air 21 11/24/18 07:11 97 Room Air 21 11/24/18 04:00 99.0 96 18 136/94 (108) 95 11/24/18 00:00 99.3 92 18 143/106 (118) 93 11/23/18 21:00 Room Air 11/23/18 20:00 99.5 97 18 149/105 (120) 94 11/23/18 19:09 Nasal Cannula 2.0 28 11/23/18 19:09 106 18 Nasal Cannula 2.0 28 11/23/18 19:09 98 Nasal Cannula 2.0 28 11/23/18 16:00 97.7 97 18 139/88 (105) 97 11/23/18 12:20 97.7 88 20 136/78 (97) 96 Intake and Output 11/23/18 11/24/18 18:59 06:59 Intake Total 360 ml 200 ml Balance 360 ml 200 ml Intake Oral 360 ml Other 200 ml # Voids 2 4 Laboratory Tests Test 11/24/18 05:43 White Blood Count 8.5 K/UL (4.8-10.8) Red Blood Count 4.10 M/UL (4.20-5.40) L Hemoglobin 12.4 G/DL (12.0-16.0) Hematocrit 38.0 % (37.0-47.0) Mean Corpuscular Volume 92 FL (80-99) Mean Corpuscular Hemoglobin 30.2 PG (27.0-31.0) Mean Corpuscular Hemoglobin Concent 32.7 G/DL (32.0-36.0) Red Cell Distribution Width 13.3 % (11.6-14.8) Platelet Count 399 K/UL (150-450) Mean Platelet Volume 5.1 FL (6.5-10.1) L Neutrophils (%) (Auto) 50.1 % (45.0-75.0) Lymphocytes (%) (Auto) 40.2 % (20.0-45.0) Monocytes (%) (Auto) 6.2 % (1.0-10.0) Eosinophils (%) (Auto) 2.7 % (0.0-3.0) Basophils (%) (Auto) 0.8 % (0.0-2.0) Sodium Level 136 MMOL/L (136-145) Potassium Level 4.4 MMOL/L (3.5-5.1) Chloride Level 100 MMOL/L (98-107) Carbon Dioxide Level 25 MMOL/L (21-32) Anion Gap 11 mmol/L (5-15) Blood Urea Nitrogen 27 mg/dL (7-18) H Creatinine 1.4 MG/DL (0.55-1.30) H Estimat Glomerular Filtration Rate 38.1 mL/min (>60) Glucose Level 189 MG/DL (74-106) H Calcium Level 10.0 MG/DL (8.5-10.1) Total Bilirubin 0.3 MG/DL (0.2-1.0) Aspartate Amino Transf (AST/SGOT) 76 U/L (15-37) H Alanine Aminotransferase (ALT/SGPT) 278 U/L (12-78) H Alkaline Phosphatase 225 U/L (46-116) H Total Protein 8.2 G/DL (6.4-8.2) Albumin 3.2 G/DL (3.4-5.0) L Globulin 5.0 g/dL Albumin/Globulin Ratio 0.6 (1.0-2.7) L Height (Feet): 5 Height (Inches): 7.00 Weight (Pounds): 158 General Appearance: WD/WN, no apparent distress, alert Cardiovascular: normal rate Respiratory/Chest: normal breath sounds, no respiratory distress Abdominal Exam: normal bowel sounds, non tender, soft Extremities: normal range of motion, non-tender Ana Lopez NP November 24, 2018 10:14
--- NOTE | 2018-11-24 11:26 | Pulmonology Progress Note ---
Assessment/Plan Problems: (1) ACS (acute coronary syndrome) (2) Elevated transaminase level (3) Hypothyroidism (4) Diabetes mellitus (5) HTN (hypertension) Assessment/Plan doing better no new complains pt cant take take of herself at home bp is controlled troponin has been negative Echo wnl dc planning Subjective ROS Limited/Unobtainable: No Constitutional: Reports: no symptoms HEENT: Repors: no symptoms Allergies: Coded Allergies: LOSARTAN (Verified Allergy, Severe, chest pain, 11/20/18) HYDROCODONE (Verified Allergy, Intermediate, rash, 11/20/18) ATORVASTATIN (Verified Allergy, Unknown, 11/20/18) LISINOPRIL (Verified Allergy, Unknown, 11/20/18) PROCHLORPERAZINE (Verified Allergy, Unknown, 11/20/18) SIMVASTATIN (Verified Allergy, Unknown, 11/20/18) Objective Last 24 Hour Vital Signs Date Time Temp Pulse Resp B/P (MAP) Pulse Ox O2 Delivery O2 Flow Rate FiO2 11/24/18 08:00 99.0 96 18 136/94 (108) 95 11/24/18 07:11 Room Air 21 11/24/18 07:11 85 16 Room Air 21 11/24/18 07:11 97 Room Air 21 11/24/18 04:00 99.0 96 18 136/94 (108) 95 11/24/18 00:00 99.3 92 18 143/106 (118) 93 11/23/18 21:00 Room Air 11/23/18 20:00 99.5 97 18 149/105 (120) 94 11/23/18 19:09 Nasal Cannula 2.0 28 11/23/18 19:09 106 18 Nasal Cannula 2.0 28 11/23/18 19:09 98 Nasal Cannula 2.0 28 11/23/18 16:00 97.7 97 18 139/88 (105) 97 11/23/18 12:20 97.7 88 20 136/78 (97) 96 Intake and Output 11/23/18 11/24/18 18:59 06:59 Intake Total 360 ml 200 ml Balance 360 ml 200 ml Intake Oral 360 ml Other 200 ml # Voids 2 4 General Appearance: WD/WN HEENT: normocephalic, atraumatic Respiratory/Chest: chest wall non-tender, lungs clear Breasts: no masses Cardiovascular: normal rate Abdomen: normal bowel sounds, no organomegaly Genitourinary: normal external genitalia Neurologic/Psychiatric: recycle coordinator II-XII grossly normal Laboratory Tests 11/24/18 05:43: White Blood Count 8.5, Red Blood Count 4.10L, Hemoglobin 12.4, Hematocrit 38.0, Mean Corpuscular Volume 92, Mean Corpuscular Hemoglobin 30.2, Mean Corpuscular Hemoglobin Concent 32.7, Red Cell Distribution Width 13.3, Platelet Count 399, Mean Platelet Volume 5.1L, Neutrophils (%) (Auto) 50.1, Lymphocytes (%) (Auto) 40.2, Monocytes (%) (Auto) 6.2, Eosinophils (%) (Auto) 2.7, Basophils (%) (Auto ) 0.8, Sodium Level 136, Potassium Level 4.4, Chloride Level 100, Carbon Dioxide Level 25, Anion Gap 11, Blood Urea Nitrogen 27H, Creatinine 1.4H, Estimat Glomerular Filtration Rate 38.1, Glucose Level 189H, Calcium Level 10.0 , Total Bilirubin 0.3, Aspartate Amino Transf (AST/SGOT) 76H, Alanine Aminotransferase (ALT/SGPT) 278H, Alkaline Phosphatase 225H, Total Protein 8.2, Albumin 3.2L, Globulin 5.0, Albumin/Globulin Ratio 0.6L Current Medications Medications (Trade) Dose Ordered Sig/Christen Route PRN Reason Start Time Stop Time Status Last Admin Dose Admin Albuterol/ Ipratropium (Albuterol/ Ipratropium) 3 ml Q4H PRN HHN Shortness of Breath 11/20/18 15:00 11/25/18 14:59 11/21/18 23:57 Aspirin (ASA) 162 mg DAILY ORAL 11/21/18 09:00 12/21/18 08:59 11/24/18 09:55 Dextrose (Dextrose 50%) 25 ml Q30M PRN IV Hypoglycemia 11/21/18 13:45 12/21/18 13:44 Dextrose (Dextrose 50%) 50 ml Q30M PRN IV Hypoglycemia 11/21/18 13:45 12/21/18 13:44 Diltiazem HCl (Cardizem) 10 mg EVERY HOUR PRN IV heart rate more than 120BPM 11/20/18 15:00 12/20/18 14:59 Diphenhydramine HCl (Benadryl) 50 mg Q6H PRN ORAL Itching 11/21/18 14:00 12/21/18 13:59 11/24/18 10:07 Docusate Sodium (Colace) 100 mg TWICE A DAY ORAL 11/21/18 18:00 12/21/18 17:59 11/24/18 09:55 Heparin Sodium (Porcine) (Heparin 5000 units/ml) 5,000 units EVERY 12 HOURS SUBQ 11/20/18 21:00 12/20/18 20:59 11/24/18 09:56 Insulin Aspart (NovoLOG) BEFORE MEALS AND HS SUBQ 11/21/18 16:30 12/21/18 16:29 11/24/18 06:07 Ketorolac Tromethamine (Toradol 30mg) 30 mg Q6H PRN IV moderate pain ( 4-6) 11/20/18 15:00 11/25/18 14:59 Levothyroxine Sodium (Synthroid) 50 mcg DAILY@0630 ORAL 11/21/18 06:30 12/21/18 06:29 11/24/18 06:05 Lidocaine (Lidoderm 5% PATCH) 1 patch Q24H TDERMAL 11/20/18 22:00 12/20/18 21:59 11/23/18 21:25 Metformin HCl (Glucophage) 1,000 mg BIAC ORAL 11/23/18 16:30 12/22/18 16:29 11/23/18 18:14 Morphine Sulfate (Morphine Sulfate) 2 mg Q4H PRN IVP For Pain 11/21/18 20:30 11/27/18 22:59 11/24/18 06:06 Nitroglycerin (Ntg) 0.4 mg Q5MIN X 3 DOSES PRN SL Prn Chest Pain 11/20/18 15:15 12/20/18 15:14 Non-Formulary Medication (Non-Formulary Med) 1 ea DAILY ORAL 11/23/18 09:00 12/23/18 08:59 UNV Ondansetron HCl (Zofran) 4 mg Q6H PRN IVP Nausea & Vomiting 11/20/18 15:00 12/20/18 14:59 Oxycodone/ Acetaminophen (Percocet 5-325) 2 tab Q4H PRN ORAL Severe Pain (Pain Scale 7-10) 11/20/18 19:00 11/27/18 18:59 11/21/18 06:26 Pantoprazole (Protonix) 40 mg DAILY ORAL 11/23/18 09:00 12/23/18 08:59 11/24/18 09:55 Polyethylene Glycol (Miralax) 17 gm DAILYPRN PRN ORAL Constipation 11/20/18 15:00 12/20/18 14:59 Ropinirole HCl (Requip) 2 mg QHS ORAL 11/20/18 23:00 12/20/18 22:59 11/23/18 22:27 Temazepam (Restoril) 15 mg HSPRN PRN ORAL Insomnia 11/20/18 21:00 11/27/18 20:59 Venlafaxine HCl (Effexor-XR) 75 mg DAILY ORAL 11/21/18 09:00 12/21/18 08:59 11/24/18 09:55 Sona Magallon MD November 24, 2018 11:26
--- NOTE | 2018-11-24 11:43 | Internal Med Progress Note ---
Subjective Date of Service: November 24, 2018 Physician Name Mike Walker Attending Physician Gt Spence MD Current Medications Medications (Trade) Dose Ordered Sig/Christen Route PRN Reason Start Time Stop Time Status Last Admin Dose Admin Albuterol/ Ipratropium (Albuterol/ Ipratropium) 3 ml Q4H PRN HHN Shortness of Breath 11/20/18 15:00 11/25/18 14:59 11/21/18 23:57 Aspirin (ASA) 162 mg DAILY ORAL 11/21/18 09:00 12/21/18 08:59 11/24/18 09:55 Dextrose (Dextrose 50%) 25 ml Q30M PRN IV Hypoglycemia 11/21/18 13:45 12/21/18 13:44 Dextrose (Dextrose 50%) 50 ml Q30M PRN IV Hypoglycemia 11/21/18 13:45 12/21/18 13:44 Diltiazem HCl (Cardizem) 10 mg EVERY HOUR PRN IV heart rate more than 120BPM 11/20/18 15:00 12/20/18 14:59 Diphenhydramine HCl (Benadryl) 50 mg Q6H PRN ORAL Itching 11/21/18 14:00 12/21/18 13:59 11/24/18 10:07 Docusate Sodium (Colace) 100 mg TWICE A DAY ORAL 11/21/18 18:00 12/21/18 17:59 11/24/18 09:55 Heparin Sodium (Porcine) (Heparin 5000 units/ml) 5,000 units EVERY 12 HOURS SUBQ 11/20/18 21:00 12/20/18 20:59 11/24/18 09:56 Insulin Aspart (NovoLOG) BEFORE MEALS AND HS SUBQ 11/21/18 16:30 12/21/18 16:29 11/24/18 06:07 Ketorolac Tromethamine (Toradol 30mg) 30 mg Q6H PRN IV moderate pain ( 4-6) 11/20/18 15:00 11/25/18 14:59 Levothyroxine Sodium (Synthroid) 50 mcg DAILY@0630 ORAL 11/21/18 06:30 12/21/18 06:29 11/24/18 06:05 Lidocaine (Lidoderm 5% PATCH) 1 patch Q24H TDERMAL 11/20/18 22:00 12/20/18 21:59 11/23/18 21:25 Metformin HCl (Glucophage) 1,000 mg BIAC ORAL 11/23/18 16:30 12/22/18 16:29 11/23/18 18:14 Morphine Sulfate (Morphine Sulfate) 2 mg Q4H PRN IVP For Pain 11/21/18 20:30 11/27/18 22:59 11/24/18 06:06 Nitroglycerin (Ntg) 0.4 mg Q5MIN X 3 DOSES PRN SL Prn Chest Pain 11/20/18 15:15 12/20/18 15:14 Non-Formulary Medication (Non-Formulary Med) 1 ea DAILY ORAL 11/23/18 09:00 12/23/18 08:59 UNV Ondansetron HCl (Zofran) 4 mg Q6H PRN IVP Nausea & Vomiting 11/20/18 15:00 12/20/18 14:59 Oxycodone/ Acetaminophen (Percocet 5-325) 2 tab Q4H PRN ORAL Severe Pain (Pain Scale 7-10) 11/20/18 19:00 11/27/18 18:59 11/21/18 06:26 Pantoprazole (Protonix) 40 mg DAILY ORAL 11/23/18 09:00 12/23/18 08:59 11/24/18 09:55 Polyethylene Glycol (Miralax) 17 gm DAILYPRN PRN ORAL Constipation 11/20/18 15:00 12/20/18 14:59 Ropinirole HCl (Requip) 2 mg QHS ORAL 11/20/18 23:00 12/20/18 22:59 11/23/18 22:27 Temazepam (Restoril) 15 mg HSPRN PRN ORAL Insomnia 11/20/18 21:00 11/27/18 20:59 Venlafaxine HCl (Effexor-XR) 75 mg DAILY ORAL 11/21/18 09:00 12/21/18 08:59 11/24/18 09:55 Allergies: Coded Allergies: LOSARTAN (Verified Allergy, Severe, chest pain, 11/20/18) HYDROCODONE (Verified Allergy, Intermediate, rash, 11/20/18) ATORVASTATIN (Verified Allergy, Unknown, 11/20/18) LISINOPRIL (Verified Allergy, Unknown, 11/20/18) PROCHLORPERAZINE (Verified Allergy, Unknown, 11/20/18) SIMVASTATIN (Verified Allergy, Unknown, 11/20/18) ROS Limited/Unobtainable: No Constitutional: Reports: no symptoms HEENT: Reports: no symptoms Cardiovascular: Reports: no symptoms Respiratory: Reports: no symptoms Gastrointestinal/Abdominal: Reports: no symptoms Genitourinary: Reports: no symptoms Neurologic/Psychiatric: Reports: no symptoms Subjective 63 YO F admitted with right shoulder/chest pain and rectal bleeding. Cover for [facility] Sp[facility]. Objective Last Vital Signs Date Time Temp Pulse Resp B/P (MAP) Pulse Ox O2 Delivery O2 Flow Rate FiO2 11/24/18 09:00 Room Air 11/24/18 08:00 99.0 96 18 136/94 (108) 95 11/24/18 07:11 21 11/23/18 19:09 2.0 Laboratory Tests Test 11/24/18 05:43 White Blood Count 8.5 K/UL (4.8-10.8) Red Blood Count 4.10 M/UL (4.20-5.40) L Hemoglobin 12.4 G/DL (12.0-16.0) Hematocrit 38.0 % (37.0-47.0) Mean Corpuscular Volume 92 FL (80-99) Mean Corpuscular Hemoglobin 30.2 PG (27.0-31.0) Mean Corpuscular Hemoglobin Concent 32.7 G/DL (32.0-36.0) Red Cell Distribution Width 13.3 % (11.6-14.8) Platelet Count 399 K/UL (150-450) Mean Platelet Volume 5.1 FL (6.5-10.1) L Neutrophils (%) (Auto) 50.1 % (45.0-75.0) Lymphocytes (%) (Auto) 40.2 % (20.0-45.0) Monocytes (%) (Auto) 6.2 % (1.0-10.0) Eosinophils (%) (Auto) 2.7 % (0.0-3.0) Basophils (%) (Auto) 0.8 % (0.0-2.0) Sodium Level 136 MMOL/L (136-145) Potassium Level 4.4 MMOL/L (3.5-5.1) Chloride Level 100 MMOL/L (98-107) Carbon Dioxide Level 25 MMOL/L (21-32) Anion Gap 11 mmol/L (5-15) Blood Urea Nitrogen 27 mg/dL (7-18) H Creatinine 1.4 MG/DL (0.55-1.30) H Estimat Glomerular Filtration Rate 38.1 mL/min (>60) Glucose Level 189 MG/DL (74-106) H Calcium Level 10.0 MG/DL (8.5-10.1) Total Bilirubin 0.3 MG/DL (0.2-1.0) Aspartate Amino Transf (AST/SGOT) 76 U/L (15-37) H Alanine Aminotransferase (ALT/SGPT) 278 U/L (12-78) H Alkaline Phosphatase 225 U/L (46-116) H Total Protein 8.2 G/DL (6.4-8.2) Albumin 3.2 G/DL (3.4-5.0) L Globulin 5.0 g/dL Albumin/Globulin Ratio 0.6 (1.0-2.7) L Intake and Output 11/23/18 11/24/18 18:59 06:59 Intake Total 360 ml 200 ml Balance 360 ml 200 ml Intake Oral 360 ml Other 200 ml # Voids 2 4 Objective PHYSICAL EXAMINATION: GENERAL: The patient is a well-developed and well-nourished female, in no apparent distress. HEENT: Eyes, pupils are equal and responsive to light and accommodation. Extraocular movements are intact. NECK: Supple without lymphadenopathy. CHEST: Lungs are clear to auscultation bilaterally without wheezes or rales. CARDIOVASCULAR: Regular rhythm and rate. S1-S2 are normal without murmurs, rubs, or gallops. ABDOMEN: Soft, nontender, and nondistended. Positive bowel sounds. No evidence of hepatosplenomegaly. Currently, no rebound or guarding noted. EXTREMITIES: Right shoulder has an ice pack. Otherwise, extremities without clubbing, cyanosis, or edema. RECTAL/GENITAL: Refused. NEUROLOGIC: Cranial nerves II through XII are grossly intact without focal deficits. Motor strength is 5/5 bilaterally. Deep tendon reflexes are 2+ plantar. Assessment/Plan Assessment/Plan ASSESSMENT: This is a 63-year-old female with: 1. Rectal bleeding. 2. Constipation. 3. Postop fever. 4. Elevated liver function tests. 5. Diabetes type 2. 6. Hypertension. 7. Gastroesophageal reflux disease. 8. Hypothyroidism. 9. Asthma. 10. Hypercholesterolemia. TREATMENT: 1. Rectale bleeding/constipation/elevated liver function tests. A Gastroenterology consultation has been obtained with Dr. Abimael Rick. The patient has been placed on a bowel regimen including miralax and colace. We will follow recommendations of Gastroenterology. 2. Postop fever. 3. Right rotator cuff tear. The patient is status post arthroscopic right rotator cuff tear repair at [facility] on 11/16/2018. 4. Diabetes type 2. A NovoLog sliding scale has been instituted. Continue metformin as above. 5. Hypertension. Continue diltiazem intravenously p.r.n. 6. Hypothyroidism. Continue Synthroid as above. 7. Gastroesophageal reflux disease. Continue Protonix as above. 8. Asthma. Continue albuterol metered-dose inhaler as above. 9. Hypercholesterolemia. Continue off statins as the patient is allergic to Zocor and Lipitor. [facility] Walker MD November 24, 2018 11:43
[2018-11-24 12:00] VITALS: BP 168/91
--- NOTE | 2018-11-24 14:57 | Diagnostic Imaging Report ---
APPROVED REPORT CPT Code: 51965 Present Symptoms Comments: BILATERAL LEGS PAIN. BILATERAL: Imaging reveals a patent deep venous system bilaterally. There is no evidence of thrombus within the femoral, popliteal or tibial segments. The greater saphenous veins are also within normal limits. Doppler indicates normal spontaneous flow within these segments.
--- NOTE | 2018-11-25 01:01 | Cardiology Report ---
APPROVED REPORT EKG Measurement Heart [id number] Normal sinus rhythm Normal ECG
--- NOTE | 2018-11-25 01:11 | Cardiology Report ---
APPROVED REPORT EKG Measurement Heart [id number] Normal sinus rhythm Normal ECG
--- NOTE | 2018-11-25 08:17 | Cardiology Report ---
APPROVED REPORT EXAM: Two-dimensional and M-mode echocardiogram with Doppler and color Doppler. INDICATION LV function M-Mode DIMENSIONS IVSd0.8 (0.7-1.1cm)Left Atrium (MM)3.0 (1.6-4.0cm) LVDd3.8 (3.5-5.6cm)Aortic Root3.0 (2.0-3.7cm) PWd0.8 (0.7-1.1cm)Aortic Cusp Exc.1.5 (1.5-2.0cm) IVSs1.0 cm LVDs2.1 (2.5-4.0cm) PWs1.0 cm Normal left ventricular chamber size, systolic function and wall motion. Left ventricular ejection fraction estimated to be 70 %. No evidence of left ventricular hypertrophy. No evidence of pericardial effusion. Left atrium is within normal limits. Right cardiac chamber sizes are moderately enlarged. Focal aortic valve sclerosis with adequate cusp excursion. Thickened mitral valve leaflets with normal excursion. Mitral annulus and aortic root calcification. Pulmonic valve not well visualized. Normal tricuspid valve structure. IVC at normal size with physiologic collapse. A color flow and spectral Doppler study was performed and revealed: Mild mitral regurgitation. Mitral diastolic velocities suggest reduced left ventricular relaxation c/w mild LV diastolic dysfunction (Grade I). Moderate tricuspid regurgitation. Tricuspid systolic velocities suggests peak right ventricular systolic pressure of 50 mmHg, consistent with moderate pulmonary hypertension.
--- NOTE | 2018-11-25 11:52 | Discharge Summary ---
Discharge Summary Discharge Summary _ DATE OF ADMISSION: 11/20/2018 DATE OF DISCHARGE: 11/24/2018 CONSULTANTS: Dr. Sona Canales BRIEF HOSPITAL COURSE: Patient is a 63-year-old English female, with medical history significant for type 2 diabetes, hypertension, hypothyroidism, hypercholesterolemia and anemia. She presented to ED with chief complaint of rectal bleeding. Patient was admitted to [facility] from 11/16/2018 to 11/19/2018. The patient was status post arthroscopic right shoulder rotator cuff repair at [facility]. She was discharged on 11/19/2018 to [facility]. She stated she had been constipated since admission to [facility]. While at the nursing facility, she asked for an enema due to stool impaction. She had a near syncopal episode. 911 was called. Patient was transported to [facility] for further evaluation. On evaluation at the ED, vital signs were stable. Blood work showed WBC of 11.4 , hemoglobin and hematocrit were stable. Electrolytes were normal. Troponin was negative. EKG showed normal sinus rhythm with no PVCs no ectopy. Chest x- ray showed right lobe atelectasis. She had discomfort to the right shoulder as well. She complained of diffuse pain in the lower back intermittently. She was then admitted for evaluation of of near syncope and rectal bleeding. [facility] was consulted. Cardiac evaluation was done. EKG was negative. Cardiac enzymes were negative. Cardiogram showed normal ejection fraction with mild mitral regurgitation, moderate tricuspid regurgitation, and moderate pulmonary hypertension. Venous duplex was negative for acute DVT. She had a fever 100.2 on 11/21/2018. There was no leukocytosis. She eventually defervesced. She was given pain management. Lidocaine patch was applied to the shoulder. She was given morphine sulfate. She was given Effexor. Patient refused stress test. She stated she had stress test done before her shoulder surgery; and believes stress test was okay that the surgery was performed. GI was consulted. Patient had severe constipation. She was given enema at the correction and had a large BM while at the emergency department. She was given bowel regimen consisting of Colace and MiraLAX. LFTs were noted to be elevated. Total bilirubin was normal. Hepatitis screen was negative. Stool OB was negative. Abdominal ultrasound showed liver with normal echogenicity. There was absent gallbladder, negative for dilated bile ducts. Patient was unable to take care of herself at home. Daughter did not want patient to return to [facility]. She was discharged to [facility]. FINAL DIAGNOSES: Rectal bleeding, acute blood loss Constipation Elevated LFTs Postop fever Right rotator cuff tear status post arthroscopic repair on 11/16/2018 at [facility] Diabetes type 2 Hypertension Hypothyroidism GERD Asthma Hypercholesterolemia DISPOSITION: Patient was discharged to a SNF. DISCHARGE MEDICATIONS: Refer to Discharge Medication List. I have been assigned to complete a discharge summary on this account, I was not involved with the patient's management. Amy Gee NP November 25, 2018 11:52
== END 2018-11-24 14:05 | DRG 378 ==
LOC: EDBD 12:11 → EMR 14:12 → EDBEDREQ 15:50 → 2E 16:10
DX: K92.2 Gastrointestinal hemorrhage, unspecified (principal); I24.9 Acute ischemic heart disease, unspecified; D62 Acute posthemorrhagic anemia; K62.5 Hemorrhage of anus and rectum; K59.00 Constipation, unspecified; R79.89 Other specified abnormal findings of blood chemistry; R50.82 Postprocedural fever; Z90.49 Acquired absence of other specified parts of digestive tract; I10 Essential (primary) hypertension; Z98.890 Other specified postprocedural states; Z79.84 Long term (current) use of oral hypoglycemic drugs; E11.9 Type 2 diabetes mellitus without complications; Z79.82 Long term (current) use of aspirin; K21.9 Gastro-esophageal reflux disease without esophagitis; E03.9 Hypothyroidism, unspecified; J45.909 Unspecified asthma, uncomplicated; E78.00 Pure hypercholesterolemia, unspecified; Z88.8 Allergy status to other drugs, medicaments and biological substances; Z88.6 Allergy status to analgesic agent; E66.9 Obesity, unspecified; G25.81 Restless legs syndrome; Z68.25 Body mass index [BMI] 25.0-25.9, adult
CPT/HCPCS: 36415; 71045; 76700; 80048; 80053; 80061; 80076; 82270; 82378; 82550; 82553; 82607; 82746; 82962; 83540; 83550; 83880; 84439; 84443; 84484; 85025; 85610; 85730; 86140; 86705; 86709; 86803; 87081; 87340; 93005; 93306; 93970; 94640; 94664; 94760; 96374; 96375; 99285; J1815; J2405; J7620